=== PATIENT | female | born 1935 | race Caucasian/White ===

== ENCOUNTER 2021-07-29 09:36 | Inpatient (IN) ==
[2021-07-29] MEDS ORDERED: BISACODYL 10 MG SUPP.RECT PR ONE (10:55)
[2021-07-29] MEDS ORDERED: morphine 2 MG/ML VIAL IV PRN (10:55)
[2021-07-29] MEDS ORDERED: METOPROLOL SUCCINATE 50 MG TAB.XL.24H PO ONE (10:56)
[2021-07-29] MEDS ORDERED: ACETAMINOPHEN 1,000 MG/100 ML BAG IV ONE (10:56)
--- NOTE | 2021-07-29 11:32 | Emergency Department Note ---
Back Pain HPI General Chief Complaint: Back Pain/Injury Stated Complaint: a-fib rvr, back pain, compression fx, arthritis Time Seen by Provider: 07/29/21 10:26 Source: patient and EMS Limitations: no limitations History of Present Illness HPI Narrative: 86-year-old female with diagnosed severe T2 compression fracture on 07/27/2021 presents for ambulatory dysfunction and self-care deficits secondary to her compression fracture. Family brought her in and is unable to care for her at home. She has been taking hydrocodone without significant relief. She has not had a bowel movement for 5 days and is endorsing abdominal distention and d iscomfort. She is taking a stool softener. Significant past medical history for atrial fibrillation, not on anticoagulation secondary to intracranial bleed. She also has a history of hypertension, GERD, permanent pacemaker, and osteoarthritis. She was unable to take her metoprolol this morning secondary to difficulty swallowing. She also reports poor oral intake and appetite. Related Data Home Medications Medication Instructions Recorded Confirmed omeprazole 20 mg capsule,delayed 20 mg PO DAILY 12/24/15 07/29/21 release metoprolol succinate 50 mg 50 mg PO BID 12/29/20 07/29/21 tablet,extended release 24 hr acetaminophen 500 mg tablet 500 mg PO Q6H PRN 07/27/21 07/29/21 (Tylenol Extra Strength) amlodipine 5 mg tablet 5 mg PO QDAY 07/27/21 07/29/21 furosemide 20 mg tablet 10 mg PO DAILY 07/27/21 07/29/21 Allergies Allergy/AdvReac Type Severity Reaction Status Date / Time codeine [CODEINE] Allergy Intermediate Syncope Verified 07/29/21 09:56 methotrexate Allergy Unknown Unknown Verified 07/29/21 09:56 Qvxkxqr-IUP-KuM Reductase Allergy Unknown Unknown Verified 07/29/21 09:56 Inhibitor [Bvnvaxf-Fkm-Vdo Reductase Inhibitor] tramadol Allergy Unknown Unknown Verified 07/29/21 09:56 folic acid AdvReac Intermediate Verified 07/29/21 09:56 losartan AdvReac Intermediate bad dreams Verified 07/29/21 09:56 celebrex Allergy Unknown Unknown Uncoded 11/17/18 08:45 Review of Systems ROS ROS Narrative: Narrative: All systems ED: reviewed and negative except as stated. [facility] Narrative Patient History Narrative: Narrative: Medical/Surgical/Family History All Active Problems (Updated 07/29/21 @ 14:18 by Ifeoma Chaudhary PA-C) Atrial fibrillation (Acute) Intracranial hemorrhage (Acute) Bleeding in mouth (Acute) Arthritis of both hips (Acute) Closed compression fracture of L2 vertebra (Acute) Closed compression fracture of lumbar vertebra (Acute) Self-care deficit (Acute) Uncontrolled pain (Acute) Rash and nonspecific skin eruption (Acute) Osteoarthritis (Acute) Polyarthralgia (Acute) Encounter for long-term (current) use of high-risk medication (Acute) 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) Melanoma of right upper arm (Chronic) Basal cell carcinoma (Chronic) Fibromyalgia (Chronic) Osteoporosis (Chronic) Eczema (Chronic) Personal history of malignant melanoma of skin (Chronic) Renal cyst (Chronic) Pelvic varices (Chronic) Vulvitis (Chronic) Bilateral hip pain (Chronic) Osteoarthritis cervical spine (Chronic) Paresthesia of upper limb (Chronic) High risk medication use (Chronic) Elevated C-reactive protein (Chronic) GERD (gastroesophageal reflux disease) (Chronic) Aneurysm of ascending aorta (Chronic) Atrial flutter (Chronic) Hypercholesteremia (Chronic) Hypertension (Chronic) 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) Muscle spasm of back (Chronic) Medical History (Updated 07/29/21 @ 14:18 by Ifeoma Chaudhary PA-C) Aneurysm of ascending aorta Atrial flutter Basal cell carcinoma Bilateral hip pain Disorder of vagina Eczema Elevated C-reactive protein Encounter for long-term (current) use of high-risk medication Fibromyalgia GERD (gastroesophageal reflux disease) High risk medication use Hypercholesteremia Hypertension Idiopathic osteoarthritis Melanoma of right upper arm Muscle spasm of back Osteoarthritis Osteoarthritis cervical spine Osteoporosis Paresthesia of upper limb Pelvic varices Personal history of malignant melanoma of skin Polyarthralgia Pain is managed with acetaminophen. Has tried multiple medications which has improved joint pain and rash initially but after 4-6 months, effectiveness stops. Currently taking only acetaminophen. Discussed adding topical diclofenac and she is willing. Psoriasis with arthropathy Rash on feet is reported worse. She is using a topical moisturizing cream. Unable to afford Otezla and she did not start this. Discussed [facility] and potential for the patient assistance program. May consider after evaluation of labs by primary provider. Psoriasis with pustules Rash and nonspecific skin eruption Renal cyst Vulvitis Surgical History History of hysterectomy History of suburethral sling procedure Hx of cataract surgery Bilateral Family History Other No pertinent family history Social History Smoking Status: Former smoker Alcohol Intake Frequency: 0-2 drinks per day Exam Narrative Narrative: General: AOx3, NAD, nontoxic appearing. Pleasant and conversant. HEENT: PERRL, EOMI, normocephalic. Moist mucous membranes. Normal facies. Chest: Symmetric Respiratory: Lungs clear to auscultation bilaterally. No respiratory distress. Unlabored breathing. Heart: A. fib, no murmurs/clicks/rubs. Abdomen: Non-tender, Non distended, hypoactive bowel tones. No organomegaly. Extremities: Warm and well perfused. No edema. DP 2+ bilaterally. No venous stasis. Neuro: No focal deficits. Cranial nerves II-XII grossly normal. Moves all 4 spontaneously. She is sensate throughout the bilateral lower extremities. Skin: Warm dry, no rashes or lesions, no cyanosis. Psych: Normal mood and affect Heme/Lymph: No abnormal bruising General Limitations: no limitations Course Course Course Narrative: 86-year-old female with severe L2 compression fracture and self-care deficits presents for inability to care for herself at home Reevaluation(s) Reevaluation #1: Obtain IV access and give IV morphine and Tylenol as well as IV fluids Bisacodyl suppository Basic labs and COVID swab for admission She will need admission for placement for skilled rehab and for improved pain management Vital Signs Vital signs: Vital Signs Temperature 98.4 F 07/29/21 09:51 Pulse Rate 135 H 07/29/21 09:51 Respiratory Rate 13 07/29/21 09:51 Blood Pressure 132/102 07/29/21 09:51 Pulse Oximetry (%) 91 07/29/21 09:51 Temperature 98.4 F 07/29/21 09:51 Pulse Rate 106 H 07/29/21 15:31 Respiratory Rate 18 07/29/21 15:45 Blood Pressure 135/106 07/29/21 15:45 Pulse Oximetry (%) 97 07/29/21 15:31 MDM MDM Narrative Medical decision making narrative: Severe L2 compression fracture Self-care deficits Uncontrolled pain Patient will need admission for pain control and placement to a [facility] facility. She is amenable to this plan. In the meantime I am giving her morphine and Tylenol for better pain management. I have discussed the case with Dr. Richard, hospitalist on service, and he has accepted the patient for admission. Lab Data Result diagrams: 07/29/21 11:53 Labs: Lab Results 07/29/21 07/29/21 Range/Units 11:53 11:53 WBC 8.2 (4.5-11.0) K/mcL RBC 4.68 (3.59-5.38) M/mcL Hgb 14.8 (11.2-15.7) g/dL Hct 42.4 (34.1-44.9) % POC Hct 45 (36-48) % MCV 90.6 (80.0-100.0) fL MCH 31.6 (26.0-34.0) pg MCHC 34.9 (31.0-36.0) g/dL RDW 13.5 (11.5-14.5) % Plt Count 108 L (140-440) K/mcL MPV 12.2 H (7.4-10.4) fL Neut % (Auto) 71.0 (38.0-78.0) % Lymph % (Auto) 13.5 L (15.5-49.0) % [place] % (Auto) 15.3 H (1.0-12.0) % Eos % (Auto) 0.1 (0.0-7.0) % Baso % (Auto) 0.1 (0.0-2.0) % Lymph # (Auto) 1.11 L (1.50-4.80) K/mcL [place] # (Auto) 1.26 H (0.10-0.90) K/mcL Eos # (Auto) 0.01 (0.00-0.70) K/mcL Baso # (Auto) 0.01 (0.00-0.30) K/mcL Absolute Neutrophils 5.83 (1.80-8.00) K/mcL POC Sodium 132 L (133-145) mEq/L POC Potassium 4.0 (3.3-5.1) mEql/L POC Chloride 96 (96-108) mEq/L POC Total CO2 27 (22-30) mmol/L POC BUN 27 H (6-20) mg/dL POC Creatinine 0.8 (0.6-1.2) mg/dL POC Glucose 125 H (70-105) mg/dL POC WB Ioniz Calcium 1.20 (1.16-1.32) mmEq/L ED POC Tests ED POC Tests: AMADO - SARS Antigen Negative Discharge Plan Patient/Caregiver Discharge Instructions Pt seen by [employer]/PA only: Yes Clinical Impression: Closed compression fracture of lumbar vertebra, Self-care deficit, Uncontrolled pain Patient Disposition: Xfer As Inpt ([facility]) Condition: Fair Discharge Date/Time: 07/29/21 16:10
[2021-07-29 12:04] LABS: POC Blood Urea Nitrogen 27 mg/dL (6-20); POC CO2 27 mmol/L (22-30); POC Chloride 96 mEq/L (96-108); POC Creatinine 0.8 mg/dL (0.6-1.2); POC Glucose, Random 125 mg/dL (70-105); POC Hematocrit 45 % (36-48); POC Sodium 132 mEq/L (133-145)
--- NOTE | 2021-07-29 13:07 | Internal Med History&Physical ---
HPI History of Present Illness Patient information: Note initiated : 07/29/21 at 1:01 pm Service Date, if different from initiated Date: [] Patient: Sherice Danielson 86 y/o F admitted on for a-fib rvr, back pain, compression fx, arthritis. Chief Complaint: [] History of present illness: Sherice Danielson is a 86 year old female with a history of hypertension, atrial fibrillation not on anticoagulation due to prior ICH, GERD, s/p permanent pac emaker, removed melanoma without recurrence, psoriasis, and osteoporosis admitted for intractable worse over the iliac crest and bilateral lower hips. The patient was seen in the ED on 07/27/21 for the same pain, workup included pelvis and hip xray as well as a lumbar spine xray that was remarkable for thoracic and lumbar compression fractures at T11 and L2, respectively, and mild osteoarthritis in both hips with no acute abnormality. The patient was discharged home with a prescription for hydrocodone that she filled and took as directed however presented again for persistent pain and inability to manage her ADLs due to pain. On exam, the pain appears to be over the bilateral iliac crest and in both hips. The pain is reproducible with palpation. She says this pain has occurred before and tends to occur more in the winter during cold weather. The pain is especially worse in the morning and associated with morning stiffness. Review of systems Constitutional: no fever, fatigue, or weight loss Eyes: no vision changes or pain Cardiovascular: no chest pain, no palpitations Respiratory: no cough or dyspnea Gastrointestinal: positive for constipation no abdominal pain, no nausea, vomiting, or diarrhea Genitourinary: no dysuria or difficulty voiding Musculoskeletal: positive for bilateral hip arthralgia Integumentary: skin lesions secondary to psoriasis Neurological: no focal weakness or numbness Psychiatric: no anxiety or depression Physical exam Head: Atraumatic, normal inspection. Eyes: normal appearance, no scleral icterus. Neck: full ROM Respiratory: no respiratory distress. Cardiovascular: normal rate and rhythm, S1, S2. GI/Abdominal: soft, nontender, no guarding. Extremities: tenderness over bilateral illiac crest and bilateral greater trochanter of femur. Neurological: CN II-XII intact, intact motor, intact sensation. Psychiatric: normal mood. 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) Melanoma of right upper arm (Chronic) Basal cell carcinoma (Chronic) Fibromyalgia (Chronic) Osteoporosis (Chronic) Eczema (Chronic) Personal history of malignant melanoma of skin (Chronic) Renal cyst (Chronic) Pelvic varices (Chronic) Vulvitis (Chronic) Bilateral hip pain (Chronic) Osteoarthritis cervical spine (Chronic) Paresthesia of upper limb (Chronic) High risk medication use (Chronic) Elevated C-reactive protein (Chronic) GERD (gastroesophageal reflux disease) (Chronic) Aneurysm of ascending aorta (Chronic) Atrial flutter (Chronic) Hypercholesteremia (Chronic) Hypertension (Chronic) 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) Muscle spasm of back (Chronic) Medical History (Updated 07/29/21 @ 14:18 by Ifeoma Chaudhary PA-C) Aneurysm of ascending aorta Atrial flutter Basal cell carcinoma Bilateral hip pain Disorder of vagina Eczema Elevated C-reactive protein Encounter for long-term (current) use of high-risk medication Fibromyalgia GERD (gastroesophageal reflux disease) High risk medication use Hypercholesteremia Hypertension Idiopathic osteoarthritis Melanoma of right upper arm Muscle spasm of back Osteoarthritis Osteoarthritis cervical spine Osteoporosis Paresthesia of upper limb Pelvic varices Personal history of malignant melanoma of skin Polyarthralgia Pain is managed with acetaminophen. Has tried multiple medications which has improved joint pain and rash initially but after 4-6 months, effectiveness stops. Currently taking only acetaminophen. Discussed adding topical diclofenac and she is willing. Psoriasis with arthropathy Rash on feet is reported worse. She is using a topical moisturizing cream. Unable to afford Otezla and she did not start this. Discussed [facility] and potential for the patient assistance program. May consider after evaluation of labs by primary provider. Psoriasis with pustules Rash and nonspecific skin eruption Renal cyst Vulvitis Surgical History History of hysterectomy History of suburethral sling procedure Hx of cataract surgery Bilateral Family History Other No pertinent family history Social History (Updated 11/17/18 @ 09:47 by CLARISSA Bueno) marital status: occupational status: retired alcohol intake frequency: 0-2 drinks per day MEDS/ALLERGIES Home Medications and Allergies Home Medications Medication Instructions Recorded Confirmed Type omeprazole 20 mg capsule,delayed 20 mg PO DAILY 12/24/15 07/29/21 History release metoprolol succinate 50 mg 50 mg PO BID 12/29/20 07/29/21 History tablet,extended release 24 hr acetaminophen 500 mg tablet 500 mg PO Q6H PRN 07/27/21 07/29/21 History (Tylenol Extra Strength) amlodipine 5 mg tablet 5 mg PO QDAY 07/27/21 07/29/21 History furosemide 20 mg tablet 10 mg PO DAILY 07/27/21 07/29/21 History Allergies Allergy/AdvReac Type Severity Reaction Status Date / Time codeine [CODEINE] Allergy Intermediate Syncope Verified 07/29/21 09:56 methotrexate Allergy Unknown Unknown Verified 07/29/21 09:56 Vfyqosf-HCG-HyT Reductase Allergy Unknown Unknown Verified 07/29/21 09:56 Inhibitor [Fttcqex-Fsu-Wzw Reductase Inhibitor] tramadol Allergy Unknown Unknown Verified 07/29/21 09:56 folic acid AdvReac Intermediate Verified 07/29/21 09:56 losartan AdvReac Intermediate bad dreams Verified 07/29/21 09:56 celebrex Allergy Unknown Unknown Uncoded 11/17/18 08:45 EXAM Constitutional Vitals: Temp Pulse Resp BP Pulse Ox 98.4 F 109 H 17 127/97 96 07/29/21 09:51 07/29/21 12:54 07/29/21 12:54 07/29/21 12:45 07/29/21 12:54 DATA Data Completed and Pending Labs: Labs from last 24 hours 07/29/21 07/29/21 11:53 11:53 WBC Pending RBC Pending Hgb Pending Hct Pending POC Hct 45 MCV Pending MCH Pending MCHC Pending RDW Pending Plt Count Pending MPV Pending Neut % (Auto) Pending POC Sodium 132 L POC Potassium 4.0 POC Chloride 96 POC Total CO2 27 POC BUN 27 H POC Creatinine 0.8 POC Glucose 125 H POC WB Ioniz Calcium 1.20 A/P Narrative A/P Narrative: Assessment: 86 year old female with a history of hypertension, atrial fibrillation not on anticoagulation due to prior ICH, GERD, s/p permanent pacemaker, removed melanoma without recurrence, psoriasis, and osteoporosis admitted for intractable worse over the iliac crest and bilateral lower hips. The patient was seen in the ED on 07/27/21 for the same pain, workup included pelvis and hip xray as well as a lumbar spine xray that was remarkable for thoracic and lumbar compression fractures at T11 and L2, respectively, and mild osteoarthritis in both hips with no acute abnormality. The patient was discharged home with a prescription for hydrocodone that she filled and took as directed however presented again for persistent pain and inability to manage her ADLs due to pain. On exam, the pain appears to be over the bilateral iliac crest and in both hips. The pain is reproducible with palpation. She says this pain has occurred before and tends to occur more in the winter during cold weather. The pain is especially worse in the morning and associated with morning stiffness. There could be a component of inflammatory pain, the patient has a known history of psoriasis which is known to be associated with inflammatory pain in the form of arthritis, enthesitis, and tendosynovitis. #Intractable pain in lower back, bilateral iliac crest, and bilateral hips -uncertain caue however inflammatory features are present -history of psoriasis #T11 and L2 vertebral compression fractures of unknown chronicity #Thrombocytopenia #Essential hypertension #Atrial fibrillation not on anticoagulation due to prior ICH #Osteoporosis #GERD #History of psoriasis #Ascending aorta aneurysm #Permanent pacemaker #History of intracranial hemorrhage #History of melanoma Plan -Scheduled tylenol PO and toradol IV, warm packs. -Avoid opioids if possible. -Bowel regimen. -Check INR and CRP. -Home medication reconciliation, resume essential medications. -PT and OT -Code status: DNR/DNI -Disposition: Probably TCU for rehab. Time Spent With Patient Time: Total time spent is greater than 50% in coordination of care (as documented) at patient's floor/unit and/or counseling patient:
[2021-07-29 13:17] LABS: Basophils # (Auto) 0.01 K/mcL (0.00-0.30); Basophils % (Auto) 0.1 % (0.0-2.0); Eosinophils # (Auto) 0.01 K/mcL (0.00-0.70); Eosinophils % (Auto) 0.1 % (0.0-7.0); Hematocrit 42.4 % (34.1-44.9); Hemoglobin 14.8 g/dL (11.2-15.7); Lymphocytes # (Auto) 1.11 K/mcL (1.50-4.80); Lymphocytes % (Auto) 13.5 % (15.5-49.0); Mean Cell Volume 90.6 fL (80.0-100.0); Mean Corpuscular HGB Conc 34.9 g/dL (31.0-36.0); Mean Platelet Volume 12.2 fL (7.4-10.4); Monocytes # (Auto) 1.26 K/mcL (0.10-0.90); Monocytes % (Auto) 15.3 % (1.0-12.0); Platelet Count 108 K/mcL (140-440); RBC 4.68 M/mcL (3.59-5.38); Red Cell Distribution Width 13.5 % (11.5-14.5); WBC 8.2 K/mcL (4.5-11.0)
[2021-07-29] MEDS ORDERED: ACETAMINOPHEN 325 MG TABLET PO SCH (16:15)
[2021-07-29] MEDS ORDERED: ONDANSETRON 4 MG/2 ML VIAL IV PRN (16:15)
[2021-07-29] MEDS: 0.9 % SODIUM CHLORIDE 10 ML SYRINGE IV SCH ×2 (17:16→21:30)
[2021-07-29] MEDS ORDERED: ACETAMINOPHEN 500 MG TABLET PO ONE ×2 (17:19→23:42)
[2021-07-29] MEDS: KETOROLAC 30 MG/ML VIAL IV SCH ×2 (18:55→23:41)
--- NOTE | 2021-07-29 21:13 | EKG ---
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
[2021-07-29] MEDS: METOPROLOL SUCCINATE 50 MG TAB.XL.24H PO SCH (21:30)
[2021-07-29] MEDS: SENNOSIDES 1 TABLET PO SCH (21:30)
[2021-07-29] MEDS: DOCUSATE SODIUM 100 MG CAPSULE PO SCH (21:30)
[2021-07-29] MEDS: ACETAMINOPHEN 500 MG TABLET PO SCH (23:40)
[2021-07-30] MEDS: 0.9 % SODIUM CHLORIDE 10 ML SYRINGE IV SCH ×3 (05:32→21:17)
[2021-07-30] MEDS: KETOROLAC 30 MG/ML VIAL IV SCH (05:32)
[2021-07-30 07:45] LABS: Basophils # (Auto) 0.02 K/mcL (0.00-0.30); Basophils % (Auto) 0.3 % (0.0-2.0); Eosinophils # (Auto) 0.05 K/mcL (0.00-0.70); Eosinophils % (Auto) 0.7 % (0.0-7.0); Hematocrit 44.4 % (34.1-44.9); Lymphocytes % (Auto) 22.4 % (15.5-49.0); Mean Cell Volume 91.5 fL (80.0-100.0); Mean Corpuscular HGB Conc 33.8 g/dL (31.0-36.0); Mean Platelet Volume 11.8 fL (7.4-10.4); Monocytes # (Auto) 1.39 K/mcL (0.10-0.90); Monocytes % (Auto) 18.3 % (1.0-12.0); Neutrophils % (Auto) 58.3 % (38.0-78.0); Platelet Count 114 K/mcL (140-440); RBC 4.85 M/mcL (3.59-5.38); Red Cell Distribution Width 13.5 % (11.5-14.5); WBC 7.6 K/mcL (4.5-11.0)
[2021-07-30 08:30] LABS: ALT/SGPT 19 U/L (<40); AST/SGOT 30 U/L (<32); Albumin 3.7 gm/dL (3.2-5.2); Albumin/Globulin Ratio 1.4 (1.0-2.3); Alkaline Phosphatase 86 U/L (39-117); Bilirubin,Total 2.3 mg/dL (0.1-1.0); Blood Urea Nitrogen 25 mg/dL (8-23); Calcium 9.2 mg/dL (8.6-10.4); Carbon Dioxide 26 mmol/L (22-30); Chloride 94 mmol/L (96-108); Globulin 2.7 gm/dL (2.2-3.7); Glomerular Filtration Rate 59; Glucose 84 mg/dL (70-105)
[2021-07-30] MEDS: OMEPRAZOLE 20 MG CAPSULE PO SCH (08:42)
[2021-07-30] MEDS: FUROSEMIDE 20 MG TABLET PO SCH (08:42)
[2021-07-30] MEDS: amLODIPine 5 MG TABLET PO SCH (08:43)
[2021-07-30] MEDS: METOPROLOL SUCCINATE 50 MG TAB.XL.24H PO SCH ×2 (08:43→21:16)
[2021-07-30] MEDS: ACETAMINOPHEN 500 MG TABLET PO SCH ×3 (08:43→21:16)
[2021-07-30] MEDS: DOCUSATE SODIUM 100 MG CAPSULE PO SCH ×2 (08:49→21:17)
[2021-07-30] MEDS: INDOMETHACIN 25 MG CAPSULE PO SCH ×4 (08:49→21:17)
[2021-07-30] MEDS: SENNOSIDES 1 TABLET PO SCH ×2 (08:50→21:17)
[2021-07-30] MEDS: POLYETHYLENE GLYCOL 3350 17 GM PACKET PO SCH (08:50)
[2021-07-30] MEDS ORDERED: OMEPRAZOLE 20 MG CAPSULE PO SCH (09:00)
--- NOTE | 2021-07-30 11:23 | Internal Med Progress Note ---
SUBJECTIVE Subjective Patient information: Note initiated : 07/30/21 at 11:13 am Service Date, if different from initiated Date: [] Patient: Sherice Danielson 86 y/o F admitted on 07/29/21 for a-fib rvr, back pain, compression fx, arthritis. Chief Complaint: [] Interval history: Sherice Danielson is a 86 year old female with a history of hypertension, atrial fibrillation not on anticoagulation due to prior ICH, GERD, s/p permanent pacemaker, removed melanoma without recurrence, psoriasis, and osteoporosis admitted for intractable worse over the iliac crest and bilateral lower hips. The patient was seen in the ED on 07/27/21 for the same pain, workup included pelvis and hip xray as well as a lumbar spine xray that was remarkable for thoracic and lumbar compression fractures at T11 and L2, respectively, and mild osteoarthritis in both hips with no acute abnormality. The patient was discharged home with a prescription for hydrocodone that she filled and took as directed however presented again for persistent pain and inability to manage her ADLs due to pain. On exam, the pain appears to be over the bilateral iliac crest and in both hips. The pain is reproducible with palpation. She says this pain has occurred before and tends to occur more in the winter during cold weather. The pain is especially worse in the morning and associated with morning stiffness. 07/30 Pain has improved, transitioned from Toradol to Indomethacin TID. Awaiting PT evaluation. Review of systems:Improved back pain, denies chills, fevers, chest pain, dysp lucinda. Physical exam Head: Atraumatic, normal inspection. Eyes: normal appearance, no scleral icterus. Neck: full ROM Respiratory: no respiratory distress. Cardiovascular: normal rate and rhythm, S1, S2. GI/Abdominal: soft, nontender, no guarding. Extremities: tenderness to palpation over bilateral sacroiliac joints Neurological: CN II-XII intact, intact motor, intact sensation. Psychiatric: normal mood. Skin: warm, normal color Constitutional Vitals: Vital Signs Temp Pulse Resp BP Pulse Ox 96.8 F L 82 20 126/87 92 07/30/21 07:11 07/30/21 07:11 07/30/21 07:11 07/30/21 07:11 07/30/21 07:11 Period Temp Pulse Resp BP Sys/Booth Pulse Ox Last 24 Hr 96.8 F-98.7 F 64-116 15-26 99-150/65-106 89-98 Intake and Output 07/29/21 07/30/21 07/30/21 21:59 05:59 13:59 Output Total 200 Balance -200 Weight 48.398 kg Intake & Output: Intake & Output 07/29/21 07/30/21 07/30/21 21:59 05:59 13:59 Output Total 200 Balance -200 Weight 48.398 kg Output: Void Amount 200 Other: Urine Appearance Clear Urine Color Bright Yellow Stool Size Small Stool Color Brown Stool Consistency Soft # Voids 1 1 # Bowel Movements 1 OBJ DATA Labs CBC & Chem 7: 07/30/21 05:00 07/30/21 05:00 Labs: Abnormal Lab Results 07/30/21 07/30/21 07/30/21 05:00 05:00 05:00 Plt Count 114 L MPV 11.8 H Lymph % (Auto) [place] % (Auto) 18.3 H Lymph # (Auto) [place] # (Auto) 1.39 H POC Sodium Chloride 94 L POC BUN BUN 25 H POC Glucose Total Bilirubin 2.3 H C-Reactive Protein 14.20 H 07/29/21 07/29/21 11:53 11:53 Plt Count 108 L MPV 12.2 H Lymph % (Auto) 13.5 L [place] % (Auto) 15.3 H Lymph # (Auto) 1.11 L [place] # (Auto) 1.26 H POC Sodium 132 L Chloride POC BUN 27 H BUN POC Glucose 125 H Total Bilirubin C-Reactive Protein Meds: Medications Acetaminophen (Acetaminophen 500 Mg Tablet) 1,000 mg PO Q8H [facility]; Protocol Last Admin: 07/30/21 08:43 Dose: 1,000 mg Documented by: Amlodipine Besylate (Amlodipine 5 Mg Tablet) 5 mg PO QDAY [facility] Last Admin: 07/30/21 08:43 Dose: 5 mg Documented by: Docusate Sodium (Docusate Sodium 100 Mg Capsule) 100 mg PO BID [facility] Last Admin: 07/30/21 08:49 Dose: Not Given Documented by: Furosemide (Furosemide 20 Mg Tablet) 10 mg PO DAILY [facility] Last Admin: 07/30/21 08:42 Dose: 10 mg Documented by: Indomethacin (Indomethacin 25 Mg Capsule) 25 mg PO TID [facility] Last Admin: 07/30/21 09:51 Dose: 25 mg Documented by: Metoprolol Succinate (Metoprolol Succinate 50 Mg Tab.Xl.24h) 50 mg PO BID [facility] Last Admin: 07/30/21 08:43 Dose: 50 mg Documented by: Omeprazole (Omeprazole 20 Mg Capsule) 40 mg PO DAILY [facility] Last Admin: 07/30/21 08:42 Dose: 40 mg Documented by: Ondansetron HCl (Ondansetron 4 Mg/2 Ml Vial) 4 mg IV Q6HP PRN PRN Reason: Nausea And Vomiting Polyethylene Glycol (Polyethylene Glycol 3350 17 Gm Packet) 17 gm PO DAILY [facility] Last Admin: 07/30/21 08:50 Dose: Not Given Documented by: Senna (Sennosides 1 Tablet) 2 tab PO BID [facility] Last Admin: 07/30/21 08:50 Dose: Not Given Documented by: Sodium Chloride (0.9 % Sodium Chloride 10 Ml Syringe) 10 ml IV Q8 [facility] Last Admin: 07/30/21 05:32 Dose: 10 ml Documented by: A/P Narrative A/P Narrative: Assessment: 86 year old female with a history of hypertension, atrial fibrillation not on anticoagulation due to prior ICH, GERD, s/p permanent pacemaker, removed melanoma without recurrence, psoriasis, and osteoporosis admitted for intractable worse over the iliac crest and bilateral lower hips. The patient was seen in the ED on 07/27/21 for the same pain, workup included pelvis and hip xray as well as a lumbar spine xray that was remarkable for thoracic and lumbar compression fractures at T11 and L2, respectively, and mild osteoarthritis in both hips with no acute abnormality. The patient was discharged home with a prescription for hydrocodone that she filled and took as directed however presented again for persistent pain and inability to manage her ADLs due to pain. On exam, the pain appears to be over the bilateral iliac crest and in both hips. The pain is reproducible with palpation. She says this pain has occurred before and tends to occur more in the winter during cold weather. The pain is especially worse in the morning and associated with morning stiffness. There could be a component of inflammatory pain, the patient has a known history of psoriasis which is known to be associated with inflammatory pain in the form of arthritis, enthesitis, and tendosynovitis. #Intractable pain in lower back, sacroiliac joints , and bilateral hips -seems to be worse at the sacroiliac joints -suspect inflammatory pain -history of psoriasis noted #T11 and L2 vertebral compression fractures of unknown chronicity #Thrombocytopenia #Essential hypertension #Atrial fibrillation not on anticoagulation due to prior ICH #Osteoporosis #GERD #History of psoriasis #Ascending aorta aneurysm #Permanent pacemaker #History of intracranial hemorrhage #History of melanoma Plan -Scheduled tylenol PO and indomethacin TID, warm packs. -Avoid opioids if possible. -Bowel regimen. -Prilosec 40 mg daily for GI prophylaxis. -PT and OT -Code status: DNR/DNI -Disposition: Probably TCU for rehab. Referral for rheumatology when discharged. Time Spent With Patient Time: Total time spent is greater than 50% in coordination of care (as documented) at patient's floor/unit and/or counseling patient: QUALITY VTE Deep Vein Thrombosis/Pulmonary Embolism Present on Admission: No
[2021-07-31] MEDS: 0.9 % SODIUM CHLORIDE 10 ML SYRINGE IV SCH ×3 (04:46→20:35)
[2021-07-31] MEDS: ACETAMINOPHEN 500 MG TABLET PO SCH ×3 (05:55→20:34)
[2021-07-31] MEDS: FUROSEMIDE 20 MG TABLET PO SCH (07:51)
[2021-07-31] MEDS: METOPROLOL SUCCINATE 50 MG TAB.XL.24H PO SCH ×2 (07:51→20:35)
[2021-07-31] MEDS: OMEPRAZOLE 20 MG CAPSULE PO SCH (07:52)
[2021-07-31] MEDS: INDOMETHACIN 25 MG CAPSULE PO SCH (07:53)
[2021-07-31] MEDS: DOCUSATE SODIUM 100 MG CAPSULE PO SCH ×2 (07:53→20:33)
[2021-07-31] MEDS: POLYETHYLENE GLYCOL 3350 17 GM PACKET PO SCH (07:53)
[2021-07-31] MEDS: amLODIPine 5 MG TABLET PO SCH (07:53)
[2021-07-31] MEDS: SENNOSIDES 1 TABLET PO SCH ×2 (07:54→20:33)
--- NOTE | 2021-07-31 11:58 | Cat Scan Report ---
CLINICAL INFORMATION: Acute diplopia. History of intraventricular hemorrhage. COMPARISON: Head CT 12/25/2019. TECHNIQUE: 2.5 mm helical slices were obtained in the skull base to vertex. Following reconstruction, axial reformatted images were reviewed at bone and parenchymal windows. The exam was performed using radiation dose optimization techniques including, but not limited to, automated exposure control, adjustment of the mA and/or kV according to patient size and use of iterative reconstruction technique. FINDINGS: The ventricles, sulci, fissures, and cisterns are symmetrically enlarged compatible with moderate age-related atrophy-no change.. No extra-axial fluid collections are identified. The cerebrum, brainstem and cerebellum are unremarkable. There is no evidence of hemorrhage, mass effect, or edema. Bone windows show no osseous abnormality. IMPRESSION: Moderate atrophy and chronic ischemic changes in the cerebral white matter-expected for age. No evidence of intracerebral hemorrhage. No cause identified for acute diplopia.. Interpreted and Authenticated by: Ivan Murray 07/31/21
--- NOTE | 2021-07-31 12:10 | Internal Med Progress Note ---
SUBJECTIVE Subjective Patient information: Note initiated : 07/31/21 at 12:08 pm Service Date, if different from initiated Date: [] Patient: Sherice Danielson 86 y/o F admitted on 07/29/21 for a-fib rvr, back pain, compression fx, arthritis. Chief Complaint: [] Interval history: Sherice Danielson is a 86 year old female with a history of hypertension, atrial fibrillation not on anticoagulation due to prior ICH, GERD, s/p permanent pacemaker, removed melanoma without recurrence, psoriasis, and osteoporosis admitted for intractable worse over the iliac crest and bilateral lower hips. The patient was seen in the ED on 07/27/21 for the same pain, workup included pelvis and hip xray as well as a lumbar spine xray that was remarkable for thoracic and lumbar compression fractures at T11 and L2, respectively, and mild osteoarthritis in both hips with no acute abnormality. The patient was discharged home with a prescription for hydrocodone that she filled and took as directed however presented again for persistent pain and inability to manage her ADLs due to pain. On exam, the pain appears to be over the bilateral iliac crest and in both hips. The pain is reproducible with palpation. She says this pain has occurred before and tends to occur more in the winter during cold weather. The pain is especially worse in the morning and associated with morning stiffness. 07/30 Pain has improved, transitioned from Toradol to Indomethacin TID. Awaiting PT evaluation. 07/31 The patient complained of diplopia and vision changes after receiving In domethacin. Discontinued Indomethacin, CT head ordered. Review of systems: Positive for diplopia, persistent back pain, denies chills, fevers, chest pain, dyspnea. Physical exam Head: Atraumatic, normal inspection. Eyes: normal appearance, no scleral icterus. Neck: full ROM Respiratory: no respiratory distress. Cardiovascular: normal rate and rhythm, S1, S2. GI/Abdominal: soft, nontender, no guarding. Extremities: tenderness to palpation over bilateral sacroiliac joints Neurological: CN II-XII intact, intact motor, intact sensation. Psychiatric: normal mood. Skin: warm, normal color Constitutional Vitals: Vital Signs Temp Pulse Resp BP Pulse Ox 97.6 F 97 H 22 149/90 90 07/31/21 07:53 07/31/21 07:53 07/31/21 07:53 07/31/21 07:53 07/31/21 07:53 Period Temp Pulse Resp BP Sys/Booth Pulse Ox Last 24 Hr 97.5 F-98.4 F 79-106 16-24 115-149/75-99 90-96 Intake and Output 07/30/21 07/31/21 07/31/21 21:59 05:59 13:59 Intake Total 840 350 Output Total 300 400 Balance 540 -50 Weight 48.035 kg Intake & Output: Intake & Output 07/30/21 07/31/21 07/31/21 21:59 05:59 13:59 Intake Total 840 350 Output Total 300 400 Balance 540 -50 Weight 48.035 kg Intake: Oral 840 350 Output: Void Amount 300 400 Other: Meal yogurt Percent of Meal Consumed 100% Feeding Ability Independent Urine Appearance Clear Clear Urine Color Bright Yellow Bright Yellow Stool Size Moderate Small Stool Color Brown Brown Stool Consistency Soft Soft Formed # Voids 1 # Bowel Movements 1 OBJ DATA Labs CBC & Chem 7: 07/30/21 05:00 07/30/21 05:00 Labs: Abnormal Lab Results 07/30/21 07/30/21 07/30/21 05:00 05:00 05:00 Plt Count 114 L MPV 11.8 H Lymph % (Auto) [place] % (Auto) 18.3 H Lymph # (Auto) [place] # (Auto) 1.39 H POC Sodium Chloride 94 L POC BUN BUN 25 H POC Glucose Total Bilirubin 2.3 H C-Reactive Protein 14.20 H 07/29/21 07/29/21 11:53 11:53 Plt Count 108 L MPV 12.2 H Lymph % (Auto) 13.5 L [place] % (Auto) 15.3 H Lymph # (Auto) 1.11 L [place] # (Auto) 1.26 H POC Sodium 132 L Chloride POC BUN 27 H BUN POC Glucose 125 H Total Bilirubin C-Reactive Protein Meds: Medications Acetaminophen (Acetaminophen 500 Mg Tablet) 1,000 mg PO Q8H [facility]; Protocol Last Admin: 07/31/21 05:55 Dose: 1,000 mg Documented by: Amlodipine Besylate (Amlodipine 5 Mg Tablet) 5 mg PO QDAY [facility] Last Admin: 07/31/21 07:53 Dose: 5 mg Documented by: Docusate Sodium (Docusate Sodium 100 Mg Capsule) 100 mg PO BID [facility] Last Admin: 07/31/21 07:53 Dose: Not Given Documented by: Furosemide (Furosemide 20 Mg Tablet) 10 mg PO DAILY [facility] Last Admin: 07/31/21 07:51 Dose: 10 mg Documented by: Metoprolol Succinate (Metoprolol Succinate 50 Mg Tab.Xl.24h) 50 mg PO BID [facility] Last Admin: 07/31/21 07:51 Dose: 50 mg Documented by: Omeprazole (Omeprazole 20 Mg Capsule) 40 mg PO DAILY [facility] Last Admin: 07/31/21 07:52 Dose: 40 mg Documented by: Ondansetron HCl (Ondansetron 4 Mg/2 Ml Vial) 4 mg IV Q6HP PRN PRN Reason: Nausea And Vomiting Polyethylene Glycol (Polyethylene Glycol 3350 17 Gm Packet) 17 gm PO DAILY [facility] Last Admin: 07/31/21 07:53 Dose: Not Given Documented by: Senna (Sennosides 1 Tablet) 2 tab PO BID [facility] Last Admin: 07/31/21 07:54 Dose: Not Given Documented by: Sodium Chloride (0.9 % Sodium Chloride 10 Ml Syringe) 10 ml IV Q8 [facility] Last Admin: 07/31/21 04:46 Dose: Not Given Documented by: A/P Narrative A/P Narrative: Assessment: 86 year old female with a history of hypertension, atrial fibrillation not on anticoagulation due to prior ICH, GERD, s/p permanent pacemaker, removed melanoma without recurrence, psoriasis, and osteoporosis admitted for intractable worse over the iliac crest and bilateral lower hips. The patient was seen in the ED on 07/27/21 for the same pain, workup included pelvis and hip xray as well as a lumbar spine xray that was remarkable for thoracic and lumbar compression fractures at T11 and L2, respectively, and mild osteoarthritis in both hips with no acute abnormality. The patient was dis charged home with a prescription for hydrocodone that she filled and took as directed however presented again for persistent pain and inability to manage her ADLs due to pain. On exam, the pain appears to be over the bilateral iliac crest and in both hips. The pain is reproducible with palpation. She says this pain has occurred before and tends to occur more in the winter during cold weather. The pain is especially worse in the morning and associated with morning stiffness. There could be a component of inflammatory pain, the patient has a known history of psoriasis which is known to be associated with inflammatory pain in the form of arthritis, enthesitis, and tendosynovitis. #Intractable pain in lower back, sacroiliac joints , and bilateral hips -seems to be worse at the sacroiliac joints -suspect inflammatory pain -history of psoriasis noted #Diplopia possibly secondary to Indomethacin #T11 and L2 vertebral compression fractures of unknown chronicity #Thrombocytopenia #Essential hypertension #Atrial fibrillation not on anticoagulation due to prior ICH #Osteoporosis #GERD #History of psoriasis #Ascending aorta aneurysm #Permanent pacemaker #History of intracranial hemorrhage #History of melanoma Plan -Scheduled tylenol PO, warm packs prn. -Discontinue Indomethacin. -CT head. -Avoid opioids if possible. -Bowel regimen. -Prilosec 40 mg daily for GI prophylaxis. -PT and OT -Code status: DNR/DNI -Disposition: Probably TCU for rehab. Referral for rheumatology when discharged. Time Spent With Patient Time: Total time spent is greater than 50% in coordination of care (as documented) at patient's floor/unit and/or counseling patient: QUALITY VTE Deep Vein Thrombosis/Pulmonary Embolism Present on Admission: No
[2021-07-31] MEDS: NAPROXEN 250 MG TABLET PO SCH (16:32)
[2021-08-01] MEDS: 0.9 % SODIUM CHLORIDE 10 ML SYRINGE IV SCH ×3 (05:53→20:51)
[2021-08-01] MEDS: ACETAMINOPHEN 500 MG TABLET PO SCH ×3 (05:54→20:50)
[2021-08-01] MEDS: FUROSEMIDE 20 MG TABLET PO SCH (09:08)
[2021-08-01] MEDS: amLODIPine 5 MG TABLET PO SCH (09:08)
[2021-08-01] MEDS: OMEPRAZOLE 20 MG CAPSULE PO SCH (09:08)
[2021-08-01] MEDS: DOCUSATE SODIUM 100 MG CAPSULE PO SCH ×2 (09:08→20:51)
[2021-08-01] MEDS: POLYETHYLENE GLYCOL 3350 17 GM PACKET PO SCH (09:09)
[2021-08-01] MEDS: SENNOSIDES 1 TABLET PO SCH ×2 (09:09→20:51)
[2021-08-01] MEDS: METOPROLOL SUCCINATE 50 MG TAB.XL.24H PO SCH ×2 (09:09→20:50)
[2021-08-01] MEDS: KETOROLAC 15 MG/ML VIAL IV SCH ×3 (09:51→20:49)
[2021-08-01] MEDS: NAPROXEN 250 MG TABLET PO SCH (11:16)
--- NOTE | 2021-08-01 18:46 | Internal Med Progress Note ---
SUBJECTIVE Subjective Patient information: Note initiated : 08/01/21 at 6:43 pm Service Date, if different from initiated Date: [] Patient: Sherice Danielson 86 y/o F admitted on 07/31/21 for a-fib rvr, back pain, compression fx, arthritis. Chief Complaint: [] Interval history: Sherice Danielson is a 86 year old female with a history of hypertension, atrial fibrillation not on anticoagulation due to prior ICH, GERD, s/p permanent pacemaker, removed melanoma without recurrence, psoriasis, and osteoporosis admitted for intractable worse over the iliac crest and bilateral lower hips. The patient was seen in the ED on 07/27/21 for the same pain, workup included pelvis and hip xray as well as a lumbar spine xray that was remarkable for thoracic and lumbar compression fractures at T11 and L2, respectively, and mild osteoarthritis in both hips with no acute abnormality. The patient was discharged home with a prescription for hydrocodone that she filled and took as directed however presented again for persistent pain and inability to manage her ADLs due to pain. On exam, the pain appears to be over the bilateral iliac crest and in both hips. The pain is reproducible with palpation. She says this pain has occurred before and tends to occur more in the winter during cold weather. The pain is especially worse in the morning and associated with morning stiffness. 07/30 Pain has improved, transitioned from Toradol to Indomethacin TID. Awaiting PT evaluation. 07/31 The patient complained of diplopia and vision changes after receiving Ind omethacin. Discontinued Indomethacin, CT head ordered. 08/01 CT head was negative for acute changes. The patient's back pain is much more severe without NSAIDS, started scheduled IV Toradol. Ordered MRI to evaluate her sacroiliac spine for evidence of sacroilliitis. Review of systems: Positive for diplopia, persistent back pain, denies chills, fevers, chest pain, dyspnea. Physical exam Head: Atraumatic, normal inspection. Eyes: normal appearance, no scleral icterus. Neck: full ROM Respiratory: no respiratory distress. Cardiovascular: normal rate and rhythm, S1, S2. GI/Abdominal: soft, nontender, no guarding. Extremities: tenderness to palpation over bilateral sacroiliac joints Neurological: CN II-XII intact, intact motor, intact sensation. Psychiatric: normal mood. Skin: warm, normal color Constitutional Vitals: Vital Signs Temp Pulse Resp BP Pulse Ox 97.5 F 80 16 100/52 95 08/01/21 16:00 08/01/21 16:00 08/01/21 16:00 08/01/21 16:00 08/01/21 16:00 Period Temp Pulse Resp BP Sys/Booth Pulse Ox Last 24 Hr 96.5 F-98.6 F 80-96 16-16 90-119/52-81 90-96 Intake and Output 08/01/21 08/01/21 08/01/21 05:59 13:59 21:59 Intake Total 100 120 Output Total 2 Balance 100 118 Weight 48.58 kg Patient Weight 08/02/21 05:59 Weight 48.58 kg Intake & Output: Intake & Output 08/01/21 08/01/21 08/01/21 05:59 13:59 21:59 Intake Total 100 120 Output Total 2 Balance 100 118 Weight 48.58 kg Intake: Oral 100 120 Output: # of times incontinent of urine 2 Other: Meal Breakfast Nourishment/Supplement Percent of Meal Consumed 100% 100% Feeding Ability Independent Independent Urine Color Light [place] Stool Size Small # Voids 1 1 4 # Bowel Movements 1 OBJ DATA Labs CBC & Chem 7: 07/30/21 05:00 07/30/21 05:00 Labs: Abnormal Lab Results 07/30/21 07/30/21 07/30/21 05:00 05:00 05:00 Plt Count 114 L MPV 11.8 H [place] % (Auto) 18.3 H [place] # (Auto) 1.39 H Chloride 94 L BUN 25 H Total Bilirubin 2.3 H C-Reactive Protein 14.20 H Meds: Medications Acetaminophen (Acetaminophen 500 Mg Tablet) 1,000 mg PO Q8H [facility]; Protocol Last Admin: 08/01/21 12:58 Dose: 1,000 mg Documented by: Amlodipine Besylate (Amlodipine 5 Mg Tablet) 5 mg PO QDAY [facility] Last Admin: 08/01/21 09:08 Dose: 5 mg Documented by: Docusate Sodium (Docusate Sodium 100 Mg Capsule) 100 mg PO BID [facility] Last Admin: 08/01/21 09:08 Dose: 100 mg Documented by: Furosemide (Furosemide 20 Mg Tablet) 10 mg PO DAILY [facility] Last Admin: 08/01/21 09:08 Dose: 10 mg Documented by: Ketorolac Tromethamine (Ketorolac 15 Mg/Ml Vial) 15 mg IV Q6H [facility] Stop: 08/03/21 03:01 Last Admin: 08/01/21 12:59 Dose: 15 mg Documented by: Metoprolol Succinate (Metoprolol Succinate 50 Mg Tab.Xl.24h) 50 mg PO BID [facility] Last Admin: 08/01/21 09:09 Dose: 50 mg Documented by: Omeprazole (Omeprazole 20 Mg Capsule) 40 mg PO DAILY [facility] Last Admin: 08/01/21 09:08 Dose: 40 mg Documented by: Ondansetron HCl (Ondansetron 4 Mg/2 Ml Vial) 4 mg IV Q6HP PRN PRN Reason: Nausea And Vomiting Polyethylene Glycol (Polyethylene Glycol 3350 17 Gm Packet) 17 gm PO DAILY [facility] Last Admin: 08/01/21 09:09 Dose: Not Given Documented by: Senna (Sennosides 1 Tablet) 2 tab PO BID [facility] Last Admin: 08/01/21 09:09 Dose: Not Given Documented by: Sodium Chloride (0.9 % Sodium Chloride 10 Ml Syringe) 10 ml IV Q8 [facility] Last Admin: 08/01/21 12:50 Dose: Not Given Documented by: A/P Narrative A/P Narrative: Assessment: 86 year old female with a history of hypertension, atrial fibrillation not on anticoagulation due to prior ICH, GERD, s/p permanent pacemaker, removed melanoma without recurrence, psoriasis, and osteoporosis admitted for intractable worse over the iliac crest and bilateral lower hips. The patient was seen in the ED on 07/27/21 for the same pain, workup included pelvis and hip xray as well as a lumbar spine xray that was remarkable for thoracic and lumbar compression fractures at T11 and L2, respectively, and mild osteoarthritis in both hips with no acute abnormality. The patient was discharged home with a prescription for hydrocodone that she filled and took as directed however presented again for persistent pain and inability to manage her ADLs due to pain. On exam, the pain appears to be over the bilateral iliac rich t and in both hips. The pain is reproducible with palpation. She says this pain has occurred before and tends to occur more in the winter during cold weather. The pain is especially worse in the morning and associated with morning stiffness. There could be a component of inflammatory pain, the patient has a known history of psoriasis which is known to be associated with inflammatory pain in the form of arthritis, enthesitis, and tendosynovitis. #Intractable pain in lower back, sacroiliac joints , and bilateral hips -seems to be worse at the sacroiliac joints -suspect inflammatory pain -history of psoriasis noted #Diplopia possibly secondary to Indomethacin #T11 and L2 vertebral compression fractures of unknown chronicity #Thrombocytopenia #Essential hypertension #Atrial fibrillation not on anticoagulation due to prior ICH #Osteoporosis #GERD #History of psoriasis #Ascending aorta aneurysm #Permanent pacemaker #History of intracranial hemorrhage #History of melanoma Plan -Scheduled tylenol PO, scheduled Tordal IV, warm packs prn. -MRI pelvis. -Avoid opioids if possible. -Bowel regimen. -Prilosec 40 mg daily for GI prophylaxis. -PT and OT -Code status: DNR/DNI -Disposition: Probably TCU for rehab. Referral for rheumatology when discharged. Time Spent With Patient Time: Total time spent is greater than 50% in coordination of care (as documented) at patient's floor/unit and/or counseling patient: QUALITY VTE Deep Vein Thrombosis/Pulmonary Embolism Present on Admission: No
[2021-08-01] MEDS ORDERED: traMADol 50 MG TABLET PO PRN (21:12)
[2021-08-02] MEDS: KETOROLAC 15 MG/ML VIAL IV SCH ×3 (02:53→17:28)
[2021-08-02] MEDS: 0.9 % SODIUM CHLORIDE 10 ML SYRINGE IV SCH ×4 (02:54→20:17)
[2021-08-02] MEDS: ACETAMINOPHEN 500 MG TABLET PO SCH ×2 (05:05→16:58)
[2021-08-02 09:59] LABS: Basophils # (Auto) 0.02 K/mcL (0.00-0.30); Basophils % (Auto) 0.3 % (0.0-2.0); Eosinophils # (Auto) 0.02 K/mcL (0.00-0.70); Eosinophils % (Auto) 0.3 % (0.0-7.0); Hematocrit 47.2 % (34.1-44.9); Lymphocytes # (Auto) 1.91 K/mcL (1.50-4.80); Mean Cell Volume 91.3 fL (80.0-100.0); Mean Corpuscular HGB Conc 33.9 g/dL (31.0-36.0); Mean Platelet Volume 11.5 fL (7.4-10.4); Monocytes % (Auto) 9.7 % (1.0-12.0); Neutrophils % (Auto) 58.7 % (38.0-78.0); Platelet Count 183 K/mcL (140-440); RBC 5.17 M/mcL (3.59-5.38); Red Cell Distribution Width 13.2 % (11.5-14.5); WBC 6.2 K/mcL (4.5-11.0)
[2021-08-02] MEDS: OMEPRAZOLE 20 MG CAPSULE PO SCH (10:03)
[2021-08-02] MEDS: FUROSEMIDE 20 MG TABLET PO SCH (10:03)
[2021-08-02] MEDS: DOCUSATE SODIUM 100 MG CAPSULE PO SCH ×2 (10:03→20:16)
[2021-08-02] MEDS: amLODIPine 5 MG TABLET PO SCH (10:04)
[2021-08-02] MEDS: POLYETHYLENE GLYCOL 3350 17 GM PACKET PO SCH (10:05)
[2021-08-02] MEDS: METOPROLOL SUCCINATE 50 MG TAB.XL.24H PO SCH ×2 (10:05→20:15)
[2021-08-02 10:06] LABS: ALT/SGPT 27 U/L (<40); AST/SGOT 34 U/L (<32); Albumin 4.1 gm/dL (3.2-5.2); Albumin/Globulin Ratio 1.6 (1.0-2.3); Alkaline Phosphatase 110 U/L (39-117); Bilirubin,Direct 0.3 mg/dL (<0.3); Bilirubin,Total 1.3 mg/dL (0.1-1.0); Blood Urea Nitrogen 25 mg/dL (8-23); Calcium 9.6 mg/dL (8.6-10.4); Carbon Dioxide 27 mmol/L (22-30); Chloride 94 mmol/L (96-108); Globulin 2.5 gm/dL (2.2-3.7); Glomerular Filtration Rate 59; Glucose 140 mg/dL (70-105); Lactate Dehydrogenase 293 U/L (135-225); Phosphorous 3.1 mg/dL (2.5-4.5); Triglycerides 100 mg/dL (<150); Uric Acid 4.3 mg/dL (2.5-8.0)
[2021-08-02] MEDS: SENNOSIDES 1 TABLET PO SCH ×2 (10:15→20:17)
[2021-08-02] MEDS ORDERED: MELOXICAM 7.5 MG TABLET PO SCH (14:25)
--- NOTE | 2021-08-02 16:15 | Internal Med Progress Note ---
SUBJECTIVE Subjective Patient information: Note initiated : 08/02/21 at 4:14 pm Service Date, if different from initiated Date: [] Patient: Sherice Danielson 86 y/o F admitted on 07/31/21 for a-fib rvr, back pain, compression fx, arthritis. Chief Complaint: [] Interval history: Sherice Danielson is a 86 year old female with a history of hypertension, atrial fibrillation not on anticoagulation due to prior ICH, GERD, s/p permanent pacemaker, removed melanoma without recurrence, psoriasis, and osteoporosis admitted for intractable worse over the iliac crest and bilateral lower hips. The patient was seen in the ED on 07/27/21 for the same pain, workup included pelvis and hip xray as well as a lumbar spine xray that was remarkable for thoracic and lumbar compression fractures at T11 and L2, respectively, and mild osteoarthritis in both hips with no acute abnormality. The patient was discharged home with a prescription for hydrocodone that she filled and took as directed however presented again for persistent pain and inability to manage her ADLs due to pain. On exam, the pain appears to be over the bilateral iliac crest and in both hips. The pain is reproducible with palpation. She says this pain has occurred before and tends to occur more in the winter during cold weather. The pain is especially worse in the morning and associated with morning stiffness. 07/30 Pain has improved, transitioned from Toradol to Indomethacin TID. Awaiting PT evaluation. 07/31 The patient complained of diplopia and vision changes after receiving Ind omethacin. Discontinued Indomethacin, CT head ordered. 08/01 CT head was negative for acute changes. The patient's back pain is much more severe without NSAIDS, started scheduled IV Toradol. Ordered MRI to evaluate her sacroiliac spine for evidence of sacroiliitis. 08/02 Unable to undergo MRI as pacemaker is not MRI compatible. The patient's back pain has significantly improved with scheduled IV Toradol. Started daily Meloxicam. Physical exam Head: Atraumatic, normal inspection. Eyes: normal appearance, no scleral icterus. Neck: full ROM Respiratory: no respiratory distress. Cardiovascular: normal rate and rhythm, S1, S2. GI/Abdominal: soft, nontender, no guarding. Extremities: tenderness to palpation over bilateral sacroiliac joints Neurological: CN II-XII intact, intact motor, intact sensation. Psychiatric: normal mood. Skin: warm, normal color Constitutional Vitals: Vital Signs Temp Pulse Resp BP Pulse Ox 96.9 F L 96 H 18 133/88 93 08/02/21 15:57 08/02/21 15:57 08/02/21 15:57 08/02/21 15:57 08/02/21 15:57 Period Temp Pulse Resp BP Sys/Booth Pulse Ox Last 24 Hr 96.9 F-98.7 F 92-103 18-24 127-151/86-97 90-95 Intake and Output 08/02/21 08/02/21 08/02/21 05:59 13:59 21:59 Intake Total 300 240 240 Output Total 2 Balance 298 240 240 Intake & Output: Intake & Output 08/02/21 08/02/21 08/02/21 05:59 13:59 21:59 Intake Total 300 240 240 Output Total 2 Balance 298 240 240 Intake: Oral 300 240 240 Output: # of times incontinent of urine 2 Other: Meal Breakfast Percent of Meal Consumed 100% Feeding Ability Independent Urine Appearance Clear Clear Clear Urine Color Pale Bright Yellow Bright Yellow Urine Odor Normal Normal Stool Size Small Moderate Moderate Stool Color Brown Brown Brown Stool Consistency Normal for Patient Formed Soft # Voids 3 2 1 # Bowel Movements 1 1 1 OBJ DATA Labs CBC & Chem 7: 08/02/21 09:00 08/02/21 09:00 Labs: Abnormal Lab Results 08/02/21 08/02/21 09:00 09:00 Hgb 16.0 H Hct 47.2 H MPV 11.5 H Chloride 94 L BUN 25 H Glucose 140 H Total Bilirubin 1.3 H Direct Bilirubin 0.3 H GGT 69 H AST 34 H Lactate Dehydrogenase 293 H Meds: Medications Acetaminophen (Acetaminophen 500 Mg Tablet) 1,000 mg PO Q8H [facility]; Protocol Last Admin: 08/02/21 05:05 Dose: 1,000 mg Documented by: Amlodipine Besylate (Amlodipine 5 Mg Tablet) 5 mg PO QDAY [facility] Last Admin: 08/02/21 10:04 Dose: 5 mg Documented by: Docusate Sodium (Docusate Sodium 100 Mg Capsule) 100 mg PO BID [facility] Last Admin: 08/02/21 10:03 Dose: 100 mg Documented by: Furosemide (Furosemide 20 Mg Tablet) 10 mg PO DAILY [facility] Last Admin: 08/02/21 10:03 Dose: 10 mg Documented by: Ketorolac Tromethamine (Ketorolac 15 Mg/Ml Vial) 15 mg IV Q6H [facility] Stop: 08/03/21 03:01 Last Admin: 08/02/21 10:17 Dose: Not Given Documented by: Meloxicam (Meloxicam 7.5 Mg Tablet) 7.5 mg PO DAILY [facility]; Protocol Metoprolol Succinate (Metoprolol Succinate 50 Mg Tab.Xl.24h) 50 mg PO BID [facility] Last Admin: 08/02/21 10:05 Dose: 50 mg Documented by: Omeprazole (Omeprazole 20 Mg Capsule) 40 mg PO DAILY [facility] Last Admin: 08/02/21 10:03 Dose: 40 mg Documented by: Ondansetron HCl (Ondansetron 4 Mg/2 Ml Vial) 4 mg IV Q6HP PRN PRN Reason: Nausea And Vomiting Polyethylene Glycol (Polyethylene Glycol 3350 17 Gm Packet) 17 gm PO DAILY [facility] Last Admin: 08/02/21 10:05 Dose: 17 gm Documented by: Senna (Sennosides 1 Tablet) 2 tab PO BID [facility] Last Admin: 08/02/21 10:15 Dose: Not Given Documented by: Sodium Chloride (0.9 % Sodium Chloride 10 Ml Syringe) 10 ml IV Q8 [facility] Last Admin: 08/02/21 04:42 Dose: Not Given Documented by: A/P Narrative A/P Narrative: Assessment: 86 year old female with a history of hypertension, atrial fibrillation not on anticoagulation due to prior ICH, GERD, s/p permanent pacemaker, removed melanoma without recurrence, psoriasis, and osteoporosis admitted for intractable worse over the bilateral sacroiliac joints. The patient was seen in the ED on 07/27/21 for the same pain, workup included pelvis and hip xray as well as a lumbar spine xray that was remarkable for thoracic and lumbar compression fractures at T11 and L2, respectively, and mild osteoarthritis in both hips with no acute abnormality. The patient was discharged home with a prescription for hydrocodone that she filled and took as directed however presented again to the ED for persistent back pain and inability to manage her ADLs due to the pain. She says this pain has occurred before and tends to occur more in the winter during cold weather. The pain is especially worse in the morning and associated with morning stiffness. There could be a component of inflammatory pain, the patient has a known history of psoriasis which is known to be associated with sacroiliitis which is the prominent location of her pain. Additionally, her back pain has responded best to NSAIDs. She says she has also had back pain relief from Methotrexate in the past however that was discontinued due to exacerbation of psoriasis skin lesions. #Intractable pain in lower back predominantly bilateral sacroiliac joints likely sacroiliitis -suspect inflammatory pain in the form of sacroiliitis secondary to psoriasis -unable to get MRI to confirm due to noncompatible pacemaker #T11 and L2 vertebral compression fractures of unknown chronicity -doubt this is causing her back pain #Essential hypertension #Atrial fibrillation not on anticoagulation due to prior ICH #Osteoporosis #GERD #History of psoriasis #Ascending aorta aneurysm #Permanent pacemaker #History of intracranial hemorrhage #History of melanoma Plan -Scheduled tylenol PO, scheduled Tordal IV, warm packs prn. -Start Meloxicam 7.5 mg daily. -Avoid opioids. -Bowel regimen. -Continue home Toprol, Norvasc, and Lasix. -Prilosec 40 mg daily for GI prophylaxis. -PT and OT -Code status: DNR/DNI -Disposition: Probably TCU for rehab when pain controlled of oral medications. Referral for rheumatology when discharged. Time Spent With Patient Time: Total time spent is greater than 50% in coordination of care (as documented) at patient's floor/unit and/or counseling patient: QUALITY VTE Deep Vein Thrombosis/Pulmonary Embolism Present on Admission: No
[2021-08-02] MEDS: KETOROLAC 30 MG/ML VIAL IV SCH (16:54)
[2021-08-02] MEDS: MELOXICAM 7.5 MG TABLET PO SCH (16:56)
[2021-08-03] MEDS: KETOROLAC 30 MG/ML VIAL IV SCH (00:09)
[2021-08-03] MEDS: ACETAMINOPHEN 500 MG TABLET PO SCH ×2 (00:09→06:11)
[2021-08-03] MEDS: 0.9 % SODIUM CHLORIDE 10 ML SYRINGE IV SCH (05:35)
[2021-08-03 06:41] LABS: Basophils # (Auto) 0.02 K/mcL (0.00-0.30); Basophils % (Auto) 0.2 % (0.0-2.0); Eosinophils # (Auto) 0 K/mcL (0.00-0.70); Eosinophils % (Auto) 0 % (0.0-7.0); Hematocrit 42.9 % (34.1-44.9); Hemoglobin 14.8 g/dL (11.2-15.7); Lymphocytes # (Auto) 2.36 K/mcL (1.50-4.80); Lymphocytes % (Auto) 28.1 % (15.5-49.0); Mean Cell Volume 90.3 fL (80.0-100.0); Mean Corpuscular HGB Conc 34.5 g/dL (31.0-36.0); Mean Platelet Volume 11.3 fL (7.4-10.4); Monocytes # (Auto) 1.39 K/mcL (0.10-0.90); Monocytes % (Auto) 16.6 % (1.0-12.0); Neutrophils % (Auto) 55.1 % (38.0-78.0); Platelet Count 182 K/mcL (140-440); RBC 4.75 M/mcL (3.59-5.38); Red Cell Distribution Width 13.1 % (11.5-14.5); WBC 8.4 K/mcL (4.5-11.0)
[2021-08-03 07:10] LABS: Albumin 3.9 gm/dL (3.2-5.2); Blood Urea Nitrogen 28 mg/dL (8-23); Calcium 9.6 mg/dL (8.6-10.4); Carbon Dioxide 28 mmol/L (22-30); Chloride 94 mmol/L (96-108); Glomerular Filtration Rate 68; Glucose 97 mg/dL (70-105)
[2021-08-03] MEDS: METOPROLOL SUCCINATE 50 MG TAB.XL.24H PO SCH (08:56)
[2021-08-03] MEDS: OMEPRAZOLE 20 MG CAPSULE PO SCH (08:57)
[2021-08-03] MEDS: MELOXICAM 7.5 MG TABLET PO SCH (08:57)
[2021-08-03] MEDS: FUROSEMIDE 20 MG TABLET PO SCH (08:57)
[2021-08-03] MEDS: amLODIPine 5 MG TABLET PO SCH (08:57)
[2021-08-03] MEDS: DOCUSATE SODIUM 100 MG CAPSULE PO SCH (08:59)
[2021-08-03] MEDS: POLYETHYLENE GLYCOL 3350 17 GM PACKET PO SCH (08:59)
[2021-08-03] MEDS: SENNOSIDES 1 TABLET PO SCH (09:00)
--- NOTE | 2021-08-03 09:22 | Discharge Summary ---
Discharge Provider Provider Patient information: Note initiated : 08/03/21 at 9:20 am Service Date, if different from initiated Date: [] Patient: Sherice Danielson 86 y/o F admitted on 07/31/21 for a-fib rvr, back pain, compression fx, arthritis. Chief Complaint: [] Date of admission: 07/31/21 12:13 Discharge date: 08/03/21 Primary care physician: Paola Lindo Consults: 07/29/21 Consult to Physician [CONS] Stat Comment: Consulting Provider: Derrek Richard Reason For Exam: Physician to Consult Discharge Meds Discharge Medications Home Medications metoprolol succinate 50 mg tablet,extended release 24 hr 50 mg PO BID 12/29/20 [History Confirmed 07/29/21 Last Taken 12/29/20] amlodipine 5 mg tablet 5 mg PO QDAY 07/27/21 [History Confirmed 07/29/21 Last Taken Unknown] furosemide 20 mg tablet 10 mg PO DAILY 07/27/21 [History Confirmed 07/29/21 Last Taken Unknown] Adult Probiotic 1 cap PO DAILY 07/29/21 [History Confirmed 07/29/21 Last Taken Unknown] Adults Multivitamin 1 tab PO DAILY 07/29/21 [History Confirmed 07/29/21 Last Taken Unknown] Calcium Citrate With D 63 mg PO DAILY 07/29/21 [History Confirmed 07/29/21 Last Taken Unknown] acetaminophen 500 mg tablet 1,000 mg PO Q8H PRN #30 tab 08/03/21 [Rx Last Taken Unknown] meloxicam 7.5 mg tablet 7.5 mg PO DAILY #60 tab 08/03/21 [Rx Last Taken Unknown] omeprazole 20 mg capsule,delayed release 40 mg PO DAILY #60 cap 08/03/21 [Rx Last Taken Unknown] COURSE Hospital Course Hospital course: Sherice Danielson is a 86 year old female with a history of hypertension, atrial fibrillation not on anticoagulation due to prior ICH, GERD, s/p permanent pacemaker, removed melanoma without recurrence, psoriasis, and osteoporosis admitted for intractable worse over the iliac crest and bilateral lower hips. The patient was seen in the ED on 07/27/21 for the same pain, workup included pelvis and hip xray as well as a lumbar spine xray that was remarkable for thoracic and lumbar compression fractures at T11 and L2, respectively, and mild osteoarthritis in both hips with no acute abnormality. The patient was discharged home with a prescription for hydrocodone that she filled and took as directed however presented again for persistent pain and inability to manage her ADLs due to pain. On exam, the pain appears to be over the bilateral iliac crest and in both hips. The pain is reproducible with palpation. She says this pain has occurred before and tends to occur more in the winter during cold weather. The pain is especially worse in the morning and associated with morning stiffness. 07/30 Pain has improved, transitioned from Toradol to Indomethacin TID. Awaiting PT evaluation. 07/31 The patient complained of diplopia and vision changes after receiving Indom ethacin. Discontinued Indomethacin, CT head ordered. 08/01 CT head was negative for acute changes. The patient's back pain is much more severe without NSAIDS, started scheduled IV Toradol. Ordered MRI to evaluate her sacroiliac spine for evidence of sacroiliitis. 08/02 Unable to undergo MRI as her pacemaker is not MRI compatible. The patient's back pain has significantly improved with scheduled IV Toradol. Started daily Meloxicam. 08/03 Back pain about the same as yesterday, tolerating Meloxicam. Discharged to SNF for rehab. Referral placed for Rheumatology. Discharge diagnosis: Inflammatory back pain Secondary discharge diagnosis: Psoriasis Time Spent with Patient Time attestation: Total time spent providing and/or coordinating discharge services: EXAM Constitutional Vitals: Temp Pulse Resp BP Pulse Ox 98.0 F 97 H 16 153/103 91 08/03/21 06:52 08/03/21 06:52 08/03/21 06:52 08/03/21 06:52 08/03/21 06:52 Discharge Data Data Completed and Pending Labs on day of discharge: Labs from last 24 hours 08/03/21 08/03/21 08/02/21 05:25 05:25 09:00 WBC 8.4 RBC 4.75 Hgb 14.8 Hct 42.9 MCV 90.3 MCH 31.2 MCHC 34.5 RDW 13.1 Plt Count 182 MPV 11.3 H Neut % (Auto) 55.1 Lymph % (Auto) 28.1 [place] % (Auto) 16.6 H Eos % (Auto) 0 Baso % (Auto) 0.2 Lymph # (Auto) 2.36 [place] # (Auto) 1.39 H Eos # (Auto) 0 Baso # (Auto) 0.02 Absolute Neutrophils 4.62 Sodium 132 L 134 Potassium 4.7 4.3 Chloride 94 L 94 L Carbon Dioxide 28 27 Anion Gap 10.0 13.0 BUN 28 H 25 H Creatinine 0.8 0.9 GFR Calculation 68 59 Glucose 97 140 H Uric Acid 4.3 Calcium 9.6 9.6 Phosphorus 3.0 3.1 Magnesium 2.0 Total Bilirubin 1.3 H Direct Bilirubin 0.3 H GGT 69 H AST 34 H ALT 27 Alkaline Phosphatase 110 Lactate Dehydrogenase 293 H Total Protein 6.6 Albumin 3.9 4.1 Globulin 2.5 Albumin/Globulin Ratio 1.6 Triglycerides 100 08/02/21 09:00 WBC 6.2 RBC 5.17 Hgb 16.0 H Hct 47.2 H MCV 91.3 MCH 30.9 MCHC 33.9 RDW 13.2 Plt Count 183 MPV 11.5 H Neut % (Auto) 58.7 Lymph % (Auto) 31.0 [place] % (Auto) 9.7 Eos % (Auto) 0.3 Baso % (Auto) 0.3 Lymph # (Auto) 1.91 [place] # (Auto) 0.60 Eos # (Auto) 0.02 Baso # (Auto) 0.02 Absolute Neutrophils 3.62 Sodium Potassium Chloride Carbon Dioxide Anion Gap BUN Creatinine GFR Calculation Glucose Uric Acid Calcium Phosphorus Magnesium Total Bilirubin Direct Bilirubin GGT AST ALT Alkaline Phosphatase Lactate Dehydrogenase Total Protein Albumin Globulin Albumin/Globulin Ratio Triglycerides Discharge Plan Patient/Caregiver Discharge Instructions Activity: as per physical therapy Diet: Regular Diet Prescriptions: New omeprazole 20 mg Capsule,Delayed Release(Dr/Ec) 40 mg PO DAILY Qty: 60 3RF acetaminophen 500 mg Tablet 1,000 mg PO Q8H PRN (Reason: pain) Qty: 30 0RF meloxicam 7.5 mg Tablet 7.5 mg PO DAILY Qty: 60 3RF Continued metoprolol succinate 50 mg tablet extended release 24 hr 50 mg PO BID 0RF amlodipine 5 mg Tablet 5 mg PO QDAY 0RF furosemide 20 mg Tablet 10 mg PO DAILY 0RF Adult Probiotic 1 cap PO DAILY 0RF Adults Multivitamin 1 tab PO DAILY 0RF Calcium Citrate With D 63 mg PO DAILY 0RF Discontinued omeprazole 20 MG capsule 20 mg PO BID 0RF acetaminophen [Tylenol Extra Strength] 500 mg Tablet 500 mg PO Q6H PRN (Reason: Pain) 0RF omeprazole 20 mg PO DAILY 0RF Other Ambulatory Orders: OT Discharge Order (Routine) Location: None Selected Ordered By: Derrek Richard Physical Therapy at Discharge - General (Routine) Location: None Selected Ordered By: Derrek Richard Follow Up Plan Follow up with: [facility] [Provider Group] (Post hospital follow up for evaluation of inflammatory back pain due to psoriasis. ) Paola Lindo MD [Primary Care Provider] - Patient Disposition: Xfer SNF Prognosis: Fair Rehab Potential: Fair I certify that the patient requires SNF services: Yes Overall status at discharge: patient is progressing back to baseline Discharge Orders: Discharge Order (Routine); Ordered 08/03/21 Ordered By: Derrek Richard QUALITY VTE Deep Vein Thrombosis/Pulmonary Embolism Present on Admission: No
== END 2021-08-03 11:30 | DRG 546 ==
LOC: ED 09:36 → INTOOBSV 16:10 → MEDSUR 16:10
PROVIDERS: ADMIT Internal Medicine; ATTEND Internal Medicine

== ENCOUNTER 2021-11-15 15:14 | Inpatient (IN) ==
--- NOTE | 2021-11-15 15:36 | Emergency Department Note ---
Extremity Problem HPI General Chief complaint: Extremity Problem,Nontraumatic Stated complaint: Right groin pain Time Seen by Provider: 11/15/21 15:16 Source: patient and family Mode of arrival: wheelchair Limitations: no limitations History of Present Illness HPI Narrative: Narrative: 86-year-old female presents the ER to be evaluated for right hip and groin pain. She fell approximately a month ago and was evaluated here at [facility] and had a negative CT scan her right hip. She was unable to bear weight after the fall but started ambulating the emergency room and was ultimately discharged. She states she was doing better but she felt a pop in her hip recently and has had worsening pain over the last day or 2 and can no longer bear weight. Her pain radiates into her groin. She denies flank pain, dysuria, urgency, frequency or hematuria. She states narcotics make her loopy and she does not want any all she takes is Tylenol for pain. She has a history of hypertension and atrial fibrillation. She is not anticoagulated for this. She denies any chest pain or chest pressure. Her main complaint is her right hip and groin pain. Related Data Home Medications Medication Instructions Recorded Confirmed metoprolol succinate 50 mg 50 mg PO BID 12/29/20 11/13/21 tablet,extended release 24 hr amlodipine 5 mg tablet 5 mg PO QDAY 07/27/21 11/13/21 furosemide 20 mg tablet 10 mg PO DAILY 07/27/21 11/13/21 Adult Probiotic 1 cap PO DAILY 07/29/21 11/13/21 Adults Multivitamin 1 tab PO DAILY 07/29/21 11/13/21 Calcium Citrate With D 63 mg PO DAILY 07/29/21 11/13/21 Previous Rx's Medication Instructions Recorded acetaminophen 500 mg tablet 1,000 mg PO Q8H PRN #30 tab 08/03/21 meloxicam 7.5 mg tablet 7.5 mg PO DAILY #60 tab 08/03/21 omeprazole 20 mg capsule,delayed 40 mg PO DAILY #60 cap 08/03/21 release tramadol 50 mg tablet 50 mg PO .q8hr PRN #90 tab MDD 3 10/04/21 Allergies Allergy/AdvReac Type Severity Reaction Status Date / Time celecoxib Allergy Unknown Unknown Verified 11/15/21 15:14 folic acid Allergy Unknown Unknown Verified 11/15/21 15:14 methotrexate Allergy Unknown Unknown Verified 11/15/21 15:14 Tkyxcer-UXO-JbU Reductase Allergy Unknown Unknown Verified 11/15/21 15:14 Inhibitor [Sbghius-Sqv-Lbp Reductase Inhibitor] codeine [CODEINE] AdvReac Intermediate Syncope Verified 11/15/21 15:14 losartan AdvReac Mild bad dreams Verified 11/15/21 15:14 Review of Systems ROS ROS Narrative: Narrative: All systems ED: reviewed and negative except as stated. [facility] Narrative Patient History Narrative: Narrative: Medical/Surgical/Family History All Active Problems (Updated 11/15/21 @ 17:02 by Eligio Acevedo PA-C) Closed pelvic fracture (Acute) Osteoarthritis of left hip (Acute) Left hip pain (Acute) Osteoarthritis of right hip (Acute) Pain in right hip (Acute) Thoracic back pain (Acute) Lumbar pain (Acute) Other low back pain (Acute) Age-related osteoporosis with current pathological fracture, vertebra(e), initial encounter for fracture (Acute) Pacemaker (Acute) History of permanent cardiac pacemaker placement (Acute) Severe back pain (Chronic) Lumbar compression fracture (Chronic) Thoracic compression fracture (Chronic) Atrial fibrillation (Acute) Intracranial hemorrhage (Acute) Bleeding in mouth (Acute) Arthritis of both hips (Acute) Closed compression fracture of L2 vertebra (Acute) Closed compression fracture of lumbar vertebra (Acute) Self-care deficit (Acute) Uncontrolled pain (Acute) Rash and nonspecific skin eruption (Acute) Osteoarthritis (Acute) Polyarthralgia (Acute) Encounter for long-term (current) use of high-risk medication (Acute) 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) Melanoma of right upper arm (Chronic) Basal cell carcinoma (Chronic) Fibromyalgia (Chronic) Osteoporosis (Chronic) Eczema (Chronic) Personal history of malignant melanoma of skin (Chronic) Renal cyst (Chronic) Pelvic varices (Chronic) Vulvitis (Chronic) Bilateral hip pain (Chronic) Osteoarthritis cervical spine (Chronic) Paresthesia of upper limb (Chronic) High risk medication use (Chronic) Elevated C-reactive protein (Chronic) GERD (gastroesophageal reflux disease) (Chronic) Aneurysm of ascending aorta (Chronic) Atrial flutter (Chronic) Hypercholesteremia (Chronic) Hypertension (Chronic) 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) Muscle spasm of back (Chronic) Medical History Age-related osteoporosis with current pathological fracture, vertebra(e), initial encounter for fracture Aneurysm of ascending aorta Atrial flutter Basal cell carcinoma Bilateral hip pain Disorder of vagina Eczema Elevated C-reactive protein Encounter for long-term (current) use of high-risk medication Fibromyalgia GERD (gastroesophageal reflux disease) High risk medication use Hypercholesteremia Hypertension Idiopathic osteoarthritis Left hip pain Lumbar compression fracture Melanoma of right upper arm Muscle spasm of back Osteoarthritis Osteoarthritis cervical spine Osteoarthritis of right hip Osteoporosis Pacemaker Pain in right hip Paresthesia of upper limb Pelvic varices Personal history of malignant melanoma of skin Polyarthralgia Pain is managed with acetaminophen. Has tried multiple medications which has improved joint pain and rash initially but after 4-6 months, effectiveness stops. Currently taking only acetaminophen. Discussed adding topical diclofenac and she is willing. Psoriasis with arthropathy Rash on feet is reported worse. She is using a topical moisturizing cream. Unable to afford Otezla and she did not start this. Discussed [employer] and potential for the patient assistance program. May consider after evaluation of labs by primary provider. Psoriasis with pustules Rash and nonspecific skin eruption Renal cyst Severe back pain Thoracic compression fracture Vulvitis Surgical History History of hysterectomy History of permanent cardiac pacemaker placement History of suburethral sling procedure Hx of cataract surgery Bilateral Family History Sister History of cancer Diabetes Mother Arthritis Diabetes Father Arthritis Other No pertinent family history Social History Smoking Status: Former smoker Alcohol Intake Frequency: 0-2 drinks per day Substance Use: does not use Exam Narrative Narrative: Narrative: Gen: No acute distress Eyes: PERRL, no conjunctival injection , and symmetrical lids. Sclerae non icteric HENMT: Normocephalic Atraumatic head, external nose and ears. Moist MM. CVS: Irregularly irregular, no murmur Radial pulses 2+ and equal bilat. No swelling RESP: Unlabored respiratory effort . Clear to auscultation bilaterally (CTAB). No noted wheezes rales or ronchi. GI: Nontender/Nondistended (NTND), No focal tenderness MSK: Right groin and hip pain, no shortening of the leg, DP and PT are 2+, normal sensation of the distal extremity, pain with internal and external rotation. Patient cannot bear weight Skin: Warm, Dry . No rashes or lesions . Cap refill less than 2. Neuro: No focal neurological deficit Psych: Awake, Alert, & Oriented (AAO) x3. Appropriate mood and affect . General Limitations: no limitations Course Vital Signs Vital signs: Vital Signs Temperature 97.7 F 11/15/21 15:14 Pulse Rate 63 11/15/21 15:14 Respiratory Rate 18 11/15/21 15:14 Blood Pressure 150/126 11/15/21 15:14 Pulse Oximetry (%) 91 11/15/21 15:14 Temperature 97.7 F 11/15/21 15:14 Pulse Rate 63 11/15/21 15:14 Respiratory Rate 18 11/15/21 15:14 Blood Pressure 150/126 11/15/21 15:14 Pulse Oximetry (%) 91 11/15/21 15:14 MDM MDM Narrative Medical decision making narrative: Narrative: Patient injured her hip about 4 weeks ago after a fall this is improved, few days ago she felt a pop in her hip. She does have a history of osteoporosis and multiple compression fractures. She will be evaluated with complete x-ray of the right hip. Hip x-ray: IMPRESSION: Subacute fractures of the right superior pubic bone, right inferior pubic ramus and possibly the left superior pubic ramus. These were occult on the prior examination Patient is here with her son and neighbor, given she cannot bear weight they are concerned they will not be able to take care of her at home. She sees home health twice a day however, she will be able to get up and out of the bed on her own or to the bathroom. She is refusing any pain medication at this time other than Tylenol. We discussed possible half-way, Maria Ines from case management will review her records and consult with the patient. Given the patient has a pelvic fracture she meets inpatient criteria, she was given Robaxin for pain as she does not want narcotics at this time. I spoke with Dr. Naylor on the phone who will bring her in for pain control and physical therapy evaluation and hopeful half-way placement either Friday or Friday. Dr. Naylor will be down to see the patient. Discharge Plan Patient/Caregiver Discharge Instructions Pt seen by PROFESSOR OF CHEMISTRY/PA only: Yes Clinical Impression: Closed pelvic fracture Patient Disposition: Xfer As Inpt ([facility]) Follow up with: Paola Lindo MD [Primary Care Provider] - Prescriptions: No Action tramadol 50 mg tablet 50 mg PO .q8hr MDD 3 PRN (Reason: pain) Qty: 90 0RF metoprolol succinate 50 mg tablet extended release 24 hr 50 mg PO BID 0RF amlodipine 5 mg Tablet 5 mg PO QDAY 0RF furosemide 20 mg Tablet 10 mg PO DAILY 0RF Adult Probiotic 1 cap PO DAILY 0RF Adults Multivitamin 1 tab PO DAILY 0RF Calcium Citrate With D 63 mg PO DAILY 0RF omeprazole 20 mg Capsule,Delayed Release(Dr/Ec) 40 mg PO DAILY Qty: 60 3RF acetaminophen 500 mg Tablet 1,000 mg PO Q8H PRN (Reason: pain) Qty: 30 0RF meloxicam 7.5 mg Tablet 7.5 mg PO DAILY Qty: 60 3RF
--- NOTE | 2021-11-15 16:00 | XRay Report ---
HISTORY: Fell 3 weeks ago with persistent right hip pain and difficulty bearing weight FINDINGS: There are subacute fractures through the right inferior pubic ramus and superior border of the right pubic bone. These were not present on the prior right hip CT performed on 10/07/21. There is some callus forming around the superior aspect of the right pubic bone, overlying the obturator foramen. There may be another nondisplaced fracture through the left superior pubic ramus. This was outside the field of view on the prior exam. There is minimal displacement of the fractures. Joint spaces in both hips are mildly narrowed and there are small marginal spurs due to arthritis. No hip fracture is present. The bones are osteopenic. Moderate amount of calcified plaque is present in the right common femoral artery. IMPRESSION: Subacute fractures of the right superior pubic bone, right inferior pubic ramus and possibly the left superior pubic ramus. These were occult on the prior examination Arthritis in both hips Interpreted and Authenticated by: Alpesh Vásquez 11/15/21
[2021-11-15] MEDS ORDERED: METHOCARBAMOL 500 MG TABLET PO ONE (16:52)
[2021-11-15] MEDS ORDERED: ACETAMINOPHEN 650 MG/65 ML BAG IV PRN (18:34)
[2021-11-15] MEDS ORDERED: ONDANSETRON 4 MG/2 ML VIAL IV PRN (18:34)
[2021-11-15] MEDS ORDERED: POTASSIUM CHLORIDE 20 MEQ PACKET PO PRN (18:34)
[2021-11-15] MEDS ORDERED: ONDANSETRON 4 MG ODT TABLET SL PRN (18:34)
[2021-11-15] MEDS ORDERED: BISACODYL 10 MG SUPP.RECT PR PRN (18:34)
[2021-11-15] MEDS ORDERED: HYDROcodone/APAP 5/325MG TABLET PO PRN (18:34)
[2021-11-15] MEDS ORDERED: POLYETHYLENE GLYCOL 3350 17 GM PACKET PO PRN (18:34)
[2021-11-15] MEDS ORDERED: MAGNESIUM SULFATE 2 GM/50 ML BAG IV PRN (18:34)
[2021-11-15] MEDS ORDERED: traMADol 50 MG TABLET PO PRN (18:34)
--- NOTE | 2021-11-15 18:55 | Internal Med History&Physical ---
HPI History of Present Illness Patient information: Note initiated : 11/15/21 at 6:47 pm Service Date, if different from initiated Date: [] Patient: Sherice Danielson a 86 y/o F admitted on 11/15/21 for Right groin pain. Chief Complaint: [] History of present illness: Ms. Danielson is a 86 year old F who lives with her and was in her usual state of health with well-controlled HTN/osteoporosis/DJD/A. fib and prior history of aneurysmal bleed who presents to the ER after experiencing pain this morning while she was walking and heard a pop around the right hip. She denies abrupt twisting motion or trauma. She immediately felt right-sided hip pain and difficulty weightbearing She helped herself using a walker to the bed. She was discovered by home health nurse in distress and unable to ambulate/weight- bear. She was thereafter sent to the ER for evaluation. Initial work-up was consistent with subacute fracture of the left superior rami/right superior pubic rami/right inferior pubic rami. Significant to presenting history, she fell 4 weeks ago and had a CT done which was unremarkable. During today's evaluation patient remained immobile and subsequently hospitalist service was consulted for admission for pain management/PT/possible transfer to halfway home. At the time of my evaluation patient is alert and oriented. She was able to answer most the questions and endorsed to history as above. She denies fever, chills, nausea, vomiting. She further denies bloody urine/bloody stool, weight loss. Review of systems 10 point review of system was performed and is negative except as above PFSH PFSH All Active Problems (Updated 11/15/21 @ 17:02 by Eligio Acevedo PA-C) Closed pelvic fracture (Acute) Osteoarthritis of left hip (Acute) Left hip pain (Acute) Osteoarthritis of right hip (Acute) Pain in right hip (Acute) Thoracic back pain (Acute) Lumbar pain (Acute) Other low back pain (Acute) Age-related osteoporosis with current pathological fracture, vertebra(e), initial encounter for fracture (Acute) Pacemaker (Acute) History of permanent cardiac pacemaker placement (Acute) Severe back pain (Chronic) Lumbar compression fracture (Chronic) Thoracic compression fracture (Chronic) Atrial fibrillation (Acute) Intracranial hemorrhage (Acute) Bleeding in mouth (Acute) Arthritis of both hips (Acute) Closed compression fracture of L2 vertebra (Acute) Closed compression fracture of lumbar vertebra (Acute) Self-care deficit (Acute) Uncontrolled pain (Acute) Rash and nonspecific skin eruption (Acute) Osteoarthritis (Acute) Polyarthralgia (Acute) Encounter for long-term (current) use of high-risk medication (Acute) 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) Melanoma of right upper arm (Chronic) Basal cell carcinoma (Chronic) Fibromyalgia (Chronic) Osteoporosis (Chronic) Eczema (Chronic) Personal history of malignant melanoma of skin (Chronic) Renal cyst (Chronic) Pelvic varices (Chronic) Vulvitis (Chronic) Bilateral hip pain (Chronic) Osteoarthritis cervical spine (Chronic) Paresthesia of upper limb (Chronic) High risk medication use (Chronic) Elevated C-reactive protein (Chronic) GERD (gastroesophageal reflux disease) (Chronic) Aneurysm of ascending aorta (Chronic) Atrial flutter (Chronic) Hypercholesteremia (Chronic) Hypertension (Chronic) 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) Muscle spasm of back (Chronic) Medical History Age-related osteoporosis with current pathological fracture, vertebra(e), initial encounter for fracture Aneurysm of ascending aorta Atrial flutter Basal cell carcinoma Bilateral hip pain Disorder of vagina Eczema Elevated C-reactive protein Encounter for long-term (current) use of high-risk medication Fibromyalgia GERD (gastroesophageal reflux disease) High risk medication use Hypercholesteremia Hypertension Idiopathic osteoarthritis Left hip pain Lumbar compression fracture Melanoma of right upper arm Muscle spasm of back Osteoarthritis Osteoarthritis cervical spine Osteoarthritis of right hip Osteoporosis Pacemaker Pain in right hip Paresthesia of upper limb Pelvic varices Personal history of malignant melanoma of skin Polyarthralgia Pain is managed with acetaminophen. Has tried multiple medications which has improved joint pain and rash initially but after 4-6 months, effectiveness stops. Currently taking only acetaminophen. Discussed adding topical diclofenac and she is willing. Psoriasis with arthropathy Rash on feet is reported worse. She is using a topical moisturizing cream. Unable to afford Otezla and she did not start this. Discussed [facility] and potential for the patient assistance program. May consider after evaluation of labs by primary provider. 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 smoking status: Never smoker alcohol intake frequency: 0-2 drinks per day substance use type: does not use MEDS/ALLERGIES Home Medications and Allergies Home Medications Medication Instructions Recorded Confirmed Type metoprolol succinate 50 mg 50 mg PO QAM 12/29/20 11/15/21 History tablet,extended release 24 hr Adult Probiotic 1 cap PO DAILY 07/29/21 11/15/21 History Adults Multivitamin 1 tab PO DAILY 07/29/21 11/15/21 History Calcium Citrate With D 63 mg PO DAILY 07/29/21 11/15/21 History meloxicam 7.5 mg tablet 7.5 mg PO DAILY #60 tab 08/03/21 11/15/21 Rx acetaminophen 500 mg tablet 1,000 mg PO Q8HP PRN 11/15/21 11/15/21 History omeprazole 20 mg capsule,delayed 40 mg PO BID 11/15/21 11/15/21 History release Allergies Allergy/AdvReac Type Severity Reaction Status Date / Time folic acid Allergy Intermediate Itching Verified 11/15/21 20:47 methotrexate Allergy Intermediate Itching Verified 11/15/21 20:47 codeine [CODEINE] AdvReac Severe Confusion Verified 11/15/21 20:47 celecoxib AdvReac Intermediate Confusion Verified 11/15/21 20:47 Vtznmox-CRS-QxQ Reductase AdvReac Intermediate Confusion Verified 11/15/21 20:47 Inhibitor [Jpumqyt-Lnk-Iyz Reductase Inhibitor] tramadol AdvReac Intermediate Confusion Verified 11/15/21 20:42 EXAM Constitutional Vitals: Temp Pulse Resp BP Pulse Ox 97.7 F 68 18 133/106 94 11/15/21 18:22 11/15/21 18:22 11/15/21 18:22 11/15/21 18:22 11/15/21 18:22 Alert oriented but anxious Head normocephalic Oral cavity moist No ear or nose discharge Eye no subconjunctival pallor, movement symmetrical S1-S2 occasionally irregular Nonlabored breathing Nondistended nontender abdomen Lower extremity no cyanosis clubbing or joint swelling, pain during weightbearing and hip flexion Skin no suspicious lesion Psych anxious but no hallucination Neuro normal higher function on limited neuro exam A/P Narrative A/P Narrative: * Multiple pelvic fractures. Continue pain management/PT OT, placement coordination per case management due to high risk subsequent falls and deconditioning * Pain management on as needed Tylenol * Osteoporosis continue calcium vitamin D * History of hypertension continue amlodipine/metoprolol * A. fib continue beta-jude * Prophylaxis SCDs. Patient carries history of aneurysmal bleed and hence refused DVT prophylaxis * DNR Plan * Inpatient admission * Pain management * Pre-existing medical condition management home medications * PT OT nutrition support * Discharge planning likely SNF Time Spent With Patient Time: Total time spent is greater than 50% in coordination of care (as documented) at patient's floor/unit and/or counseling patient:
[2021-11-15] MEDS: ACETAMINOPHEN 325 MG TABLET PO PRN (20:54)
[2021-11-15] MEDS: SENNOSIDES/DOCUSATE SODIUM 1 TAB TABLET PO SCH (20:56)
[2021-11-15] MEDS: METHOCARBAMOL 500 MG TABLET PO PRN (20:56)
[2021-11-15] MEDS: 0.9 % SODIUM CHLORIDE 10 ML SYRINGE IV SCH (20:56)
[2021-11-15] MEDS: DOCUSATE SODIUM 100 MG CAPSULE PO SCH (20:56)
[2021-11-15] MEDS: MELATONIN 3 MG TABLET PO PRN (20:56)
[2021-11-15] MEDS ORDERED: HEPARIN 5,000 UNIT/ML VIAL SQ SCH (21:00)
[2021-11-16] MEDS: ACETAMINOPHEN 325 MG TABLET PO PRN ×5 (02:37→21:31)
[2021-11-16] MEDS: 0.9 % SODIUM CHLORIDE 10 ML SYRINGE IV SCH ×3 (04:54→21:32)
[2021-11-16] MEDS: METHOCARBAMOL 500 MG TABLET PO PRN ×3 (04:56→21:32)
[2021-11-16 06:45] LABS: Basophils # (Auto) 0 K/mcL (0.00-0.30); Basophils % (Auto) 0 % (0.0-2.0); Eosinophils # (Auto) 0.03 K/mcL (0.00-0.70); Eosinophils % (Auto) 0.5 % (0.0-7.0); Hematocrit 42.8 % (34.1-44.9); Hemoglobin 14.6 g/dL (11.2-15.7); Mean Cell Volume 93.2 fL (80.0-100.0); Mean Corpuscular HGB Conc 34.1 g/dL (31.0-36.0); Mean Platelet Volume 11.1 fL (7.4-10.4); Monocytes # (Auto) 0.56 K/mcL (0.10-0.90); Monocytes % (Auto) 9.2 % (1.0-12.0); Neutrophils % (Auto) 62.3 % (38.0-78.0); Platelet Count 208 K/mcL (140-440); RBC 4.59 M/mcL (3.59-5.38); Red Cell Distribution Width 14.9 % (11.5-14.5); WBC 6.1 K/mcL (4.5-11.0)
[2021-11-16 07:20] LABS: ALT/SGPT 27 U/L (<40); AST/SGOT 26 U/L (<32); Albumin 3.9 gm/dL (3.2-5.2); Albumin/Globulin Ratio 1.5 (1.0-2.3); Alkaline Phosphatase 222 U/L (39-117); Bilirubin,Direct 0.2 mg/dL (<0.3); Bilirubin,Total 1.1 mg/dL (0.1-1.0); Blood Urea Nitrogen 25 mg/dL (8-23); Calcium 9.8 mg/dL (8.6-10.4); Carbon Dioxide 26 mmol/L (22-30); Chloride 95 mmol/L (96-108); Globulin 2.6 gm/dL (2.2-3.7); Glomerular Filtration Rate 79; Glucose 99 mg/dL (70-105); Lactate Dehydrogenase 258 U/L (135-225); Phosphorous 3.6 mg/dL (2.5-4.5); Triglycerides 120 mg/dL (<150); Uric Acid 3.5 mg/dL (2.5-8.0)
[2021-11-16] MEDS: DOCUSATE SODIUM 100 MG CAPSULE PO SCH ×2 (07:52→21:32)
[2021-11-16] MEDS: MULTIVIT,THER IRON,CA,FA & MIN 1 TABLET PO SCH (07:52)
--- NOTE | 2021-11-16 08:24 | Internal Med Progress Note ---
SUBJECTIVE Subjective Patient information: Note initiated : 11/16/21 at 8:21 am Service Date, if different from initiated Date: [] Patient: Sherice Danielson 86 y/o F admitted on 11/15/21 for Right groin pain. Chief Complaint: [] Interval history: Ms. Danielson is a 86 year old F who lives with her and was in her usual state of health with well-controlled HTN/osteoporosis/DJD/A. fib and prior history of aneurysmal bleed who presents to the ER after experiencing pain this morning while she was walking and heard a pop around the right hip. She denies abrupt twisting motion or trauma. She immediately felt right-sided hip pain and difficulty weightbearing She helped herself using a walker to the bed. She was discovered by home health nurse in distress and unable to ambulate/weight- bear. She was thereafter sent to the ER for evaluation. Initial work-up was consistent with subacute fracture of the left superior rami/right superior pubic rami/right inferior pubic rami. Significant to presenting history, she fell 4 weeks ago and had a CT done which was unremarkable. During today's evaluation patient remained immobile and sub sequently hospitalist service was consulted for admission for pain management/PT/possible transfer to group home home. 11/16 Ms. Boothe was seen in room this morning. In good spirits. No overnight event, significant pain. Was able to weight bear weight and use the bathroom. Restarting home medications. No fever chills. Continue therapies as tolerated. On Robaxin/Tylenol for pain management. Likely discharge to SNF, case management coordinating Constitutional Vitals: Vital Signs Temp Pulse Resp BP Pulse Ox 97.4 F 92 H 18 143/96 93 11/16/21 04:56 11/16/21 04:56 11/16/21 04:56 11/16/21 04:56 11/16/21 04:56 Period Temp Pulse Resp BP Sys/Booth Pulse Ox Last 24 Hr 97.4 F-98.6 F 63-130 16-18 115-150/75-126 90-94 Intake and Output 11/15/21 11/16/21 11/16/21 21:59 05:59 13:59 Intake Total 400 Output Total 650 1150 Balance -650 -750 Weight 44.452 kg Alert oriented Nonlabored breathing No anxiety Difficulty weightbearing and tenderness hip flexion Intake & Output: Intake & Output 11/15/21 11/16/21 11/16/21 21:59 05:59 13:59 Intake Total 400 Output Total 650 1150 Balance -650 -750 Weight 44.452 kg Intake: Oral 400 Output: Void Amount 650 1150 Other: Urine Appearance Clear Clear Urine Color Pale Pale OBJ DATA Labs CBC & Chem 7: 11/16/21 05:22 11/16/21 05:22 Labs: Abnormal Lab Results 11/16/21 11/16/21 05:22 05:22 RDW 14.9 H MPV 11.1 H Chloride 95 L BUN 25 H Total Bilirubin 1.1 H GGT 135 H Alkaline Phosphatase 222 H Lactate Dehydrogenase 258 H Meds: Medications Acetaminophen (Acetaminophen 325 Mg Tablet) 650 mg PO Q4-6HP PRN; Protocol PRN Reason: Per Pain Protocol/Fever > 101 Last Admin: 11/16/21 07:56 Dose: 650 mg Documented by: Bisacodyl (Bisacodyl 10 Mg Supp.Rect) 10 mg NC Q2-3DAYS PRN PRN Reason: Constipation Docusate Sodium (Docusate Sodium 100 Mg Capsule) 100 mg PO BID [facility] Last Admin: 11/16/21 07:52 Dose: 100 mg Documented by: Acetaminophen (Ofirmev) 650 mg in 65 mls @ 130 mls/hr IV Q6HP PRN; Protocol PRN Reason: Per Pain Protocol/Fever > 101 Magnesium Sulfate (Magnesium Sulfate) 2 gm in 50 mls @ 50 mls/hr IV UD PRN PRN Reason: MG = or < 1.7 Iron Carb/Multivit/Sand Caster Apprentice/Folic Acid (Multivit,Ther Iron,Ca,Fa & Min 1 Tablet) 1 tab PO DAILY [facility] Last Admin: 11/16/21 07:52 Dose: 1 tab Documented by: Melatonin (Melatonin 3 Mg Tablet) 3 mg PO HSP PRN PRN Reason: Insomnia Last Admin: 11/15/21 20:56 Dose: 3 mg Documented by: Methocarbamol (Methocarbamol 500 Mg Tablet) 500 mg PO BIDP PRN PRN Reason: Muscle Spasm Last Admin: 11/16/21 04:56 Dose: 500 mg Documented by: Ondansetron HCl (Ondansetron 4 Mg Odt Tablet) 4 mg SL Q4-6HP PRN; Protocol PRN Reason: Nausea And Vomiting Ondansetron HCl (Ondansetron 4 Mg/2 Ml Vial) 4 mg IV Q4-6HP PRN; Protocol PRN Reason: Nausea And Vomiting Polyethylene Glycol (Polyethylene Glycol 3350 17 Gm Packet) 17 gm PO DAILYP PRN PRN Reason: Constipation Potassium Chloride (Potassium Chloride 20 Meq Packet) 40 meq PO DAILYP PRN PRN Reason: K+ < 3.5 Senna/Docusate Sodium (Sennosides/Docusate Sodium 1 Tab Tablet) 1 tab PO HS [facility] Last Admin: 11/15/21 20:56 Dose: 1 tab Documented by: Sodium Chloride (0.9 % Sodium Chloride 10 Ml Syringe) 10 ml IV Q8 [facility] Last Admin: 11/16/21 04:54 Dose: 10 ml Documented by: A/P Narrative A/P Narrative: * Multiple pelvic fractures. Including right and left suprapubic rami. Clinically improved with continued pain management/PT OT, able to bear weight. Remainshigh risk subsequent falls and deconditioning. Case management coordinate SNF placement * Pain management on as needed Tylenol/Robaxin * Osteoporosis continue calcium vitamin D, on bisphosphonates as outpatient per patient * History of hypertension continue amlodipine/metoprolol * A. fib continue beta-jude. Not on anticoagulation or antiplatelet due to history of aneurysm * Prophylaxis SCDs. refused pharmacological DVT prophylaxis * DNR Plan * PT OT * Pain management * Pre-existing medical condition management home medications * Discharge planning likely SNF coordination per case management Time Spent With Patient Time: Total time spent is greater than 50% in coordination of care (as documented) at patient's floor/unit and/or counseling patient: Total time spent with greater than 50% in coordination of care (as documented) at patient's floor/unit and/or counseling patient:: 25 - 35 minutes QUALITY VTE Deep Vein Thrombosis/Pulmonary Embolism Present on Admission: No
[2021-11-16] MEDS: CALCIUM W/VIT D3 500 MG TABLET PO SCH (08:37)
[2021-11-16] MEDS: MELOXICAM 7.5 MG TABLET PO SCH (08:37)
[2021-11-16] MEDS: METOPROLOL SUCCINATE 50 MG TAB.XL.24H PO SCH (08:37)
[2021-11-16] MEDS: LACTOBACILLUS 1 CAPSULE PO SCH (08:38)
[2021-11-16] MEDS: OMEPRAZOLE 20 MG CAPSULE PO SCH ×2 (08:39→16:55)
[2021-11-16] MEDS ORDERED: [UNRECOGNIZED DRUG - OTHER] PO SCH (09:00)
--- NOTE | 2021-11-16 12:39 | Internal Med Progress Note ---
SUBJECTIVE Subjective Patient information: Note initiated : 11/16/21 at 12:35 pm Service Date, if different from initiated Date: [] Patient: Sherice Danielson 86 y/o F admitted on 11/15/21 for Right groin pain. Chief Complaint: [] Interval history: Ms. Danielson is a 86 year old F who lives with her and was in her usual state of health with well-controlled HTN/osteoporosis/DJD/A. fib and prior history of aneurysmal bleed who presents to the ER after experiencing pain this morning while she was walking and heard a pop around the right hip. She denies abrupt twisting motion or trauma. She immediately felt right-sided hip pain and difficulty weightbearing She helped herself using a walker to the bed. She was discovered by home health nurse in distress and unable to ambulate/weight- bear. She was thereafter sent to the ER for evaluation. Initial work-up was consistent with subacute fracture of the left superior rami/right superior pubic rami/right inferior pubic rami. Significant to presenting history, she fell 4 weeks ago and had a CT done which was unremarkable. During today's evaluation patient remained immobile and graff bsequently hospitalist service was consulted for admission for pain management/PT/possible transfer to [facility]. 11/16 Ms. Boothe was seen in room this morning. In good spirits. No overnight event, significant pain. Was able to weight bear weight and use the bathroom. Restarting home medications. No fever chills. Continue therapies as tolerated. On Robaxin/Tylenol for pain management. Likely discharge to SNF, case management coordinating Constitutional Vitals: Vital Signs Temp Pulse Resp BP Pulse Ox 98.0 F 123 H 16 119/82 90 11/16/21 11:37 11/16/21 11:37 11/16/21 11:37 11/16/21 11:37 11/16/21 11:37 Period Temp Pulse Resp BP Sys/Booth Pulse Ox Last 24 Hr 97.4 F-98.6 F 63-130 16-18 110-150/75-126 90-94 Intake and Output 11/15/21 11/16/21 11/16/21 21:59 05:59 13:59 Intake Total 400 Output Total 650 1150 Balance -650 -750 Weight 44.452 kg 44.452 kg Patient Weight 11/17/21 05:59 Weight 44.452 kg Intake & Output: Intake & Output 11/15/21 11/16/21 11/16/21 21:59 05:59 13:59 Intake Total 400 Output Total 650 1150 Balance -650 -750 Weight 44.452 kg 44.452 kg Intake: Oral 400 Output: Void Amount 650 1150 Other: Meal Breakfast Percent of Meal Consumed 100% Urine Appearance Clear Clear Urine Color Pale Pale Exam: General: Alert, Awake, No acute Distress Eyes/N/T: EOMI, Head/Neck: neck supple, CV: RRR, No murmurs, Pulm: Clear b/l, no wheezing/rhonchi/rales Abd: soft, nontender, +BS x4 Ext: no clubbing/cyanosis/edema Neuro: Alert, no focal deficits, moves all extremities, Skin: warm/dry OBJ DATA Labs CBC & Chem 7: 11/16/21 05:22 11/16/21 05:22 Labs: Abnormal Lab Results 11/16/21 11/16/21 05:22 05:22 RDW 14.9 H MPV 11.1 H Chloride 95 L BUN 25 H Total Bilirubin 1.1 H GGT 135 H Alkaline Phosphatase 222 H Lactate Dehydrogenase 258 H Meds: Medications Acetaminophen (Acetaminophen 325 Mg Tablet) 650 mg PO Q4-6HP PRN; Protocol PRN Reason: Per Pain Protocol/Fever > 101 Last Admin: 11/16/21 07:56 Dose: 650 mg Documented by: Bisacodyl (Bisacodyl 10 Mg Supp.Rect) 10 mg ND Q2-3DAYS PRN PRN Reason: Constipation Calcium/Vitamin D (Calcium W/Vit D3 500 Mg Tablet) 500 mg PO DAILY [facility] Last Admin: 11/16/21 08:37 Dose: 500 mg Documented by: Docusate Sodium (Docusate Sodium 100 Mg Capsule) 100 mg PO BID [facility] Last Admin: 11/16/21 07:52 Dose: 100 mg Documented by: Acetaminophen (Ofirmev) 650 mg in 65 mls @ 130 mls/hr IV Q6HP PRN; Protocol PRN Reason: Per Pain Protocol/Fever > 101 Magnesium Sulfate (Magnesium Sulfate) 2 gm in 50 mls @ 50 mls/hr IV UD PRN PRN Reason: MG = or < 1.7 Iron Carb/Multivit/[employer]t [employer] [place]/Folic Acid (Multivit,Ther Iron,Ca,Fa & Min 1 Tablet) 1 tab PO DAILY [facility] Last Admin: 11/16/21 07:52 Dose: 1 tab Documented by: Lactobacillus Rhamnosus (Lactobacillus 1 Capsule) 1 cap PO DAILY [facility] Last Admin: 11/16/21 08:38 Dose: 1 cap Documented by: Melatonin (Melatonin 3 Mg Tablet) 3 mg PO HSP PRN PRN Reason: Insomnia Last Admin: 11/15/21 20:56 Dose: 3 mg Documented by: Meloxicam (Meloxicam 7.5 Mg Tablet) 7.5 mg PO DAILY [facility]; Protocol Last Admin: 11/16/21 08:37 Dose: 7.5 mg Documented by: Methocarbamol (Methocarbamol 500 Mg Tablet) 500 mg PO Q6HP PRN PRN Reason: Muscle Spasm Metoprolol Succinate (Metoprolol Succinate 50 Mg Tab.Xl.24h) 50 mg PO QAM [facility] Last Admin: 11/16/21 08:37 Dose: 50 mg Documented by: Omeprazole (Omeprazole 20 Mg Capsule) 40 mg PO BIDAC [facility] Last Admin: 11/16/21 08:39 Dose: Not Given Documented by: Ondansetron HCl (Ondansetron 4 Mg Odt Tablet) 4 mg SL Q4-6HP PRN; Protocol PRN Reason: Nausea And Vomiting Ondansetron HCl (Ondansetron 4 Mg/2 Ml Vial) 4 mg IV Q4-6HP PRN; Protocol PRN Reason: Nausea And Vomiting Polyethylene Glycol (Polyethylene Glycol 3350 17 Gm Packet) 17 gm PO DAILYP PRN PRN Reason: Constipation Potassium Chloride (Potassium Chloride 20 Meq Packet) 40 meq PO DAILYP PRN PRN Reason: K+ < 3.5 Senna/Docusate Sodium (Sennosides/Docusate Sodium 1 Tab Tablet) 1 tab PO HS [facility] Last Admin: 11/15/21 20:56 Dose: 1 tab Documented by: Sodium Chloride (0.9 % Sodium Chloride 10 Ml Syringe) 10 ml IV Q8 [facility] Last Admin: 11/16/21 04:54 Dose: 10 ml Documented by: A/P Narrative A/P Narrative: A: *Multiple pelvic fractures, Including right and left suprapubic rami: -Clinically improved with continued pain management/PT OT, able to bear weight. -Remains high risk subsequent falls and deconditioning. Case management co ordinate SNF placement *Osteoporosis: continue calcium vitamin D, on bisphosphonates as outpatient per patient *HTN: on amlodipine/metoprolol *A. fib: on BB. Not on anticoagulation or antiplatelet due to history of aneurysm *GERD: Plan: -Pain management on as needed Tylenol/Robaxin -PT OT -[facility] BP meds -Discharge planning likely SNF coordination per case management -ppx: SCD refused pharmacological DVT prophylaxis / home ppi DNR Time Spent With Patient Time: Total time spent is greater than 50% in coordination of care (as documented) at patient's floor/unit and/or counseling patient: QUALITY VTE Deep Vein Thrombosis/Pulmonary Embolism Present on Admission: No
[2021-11-16] MEDS: MELATONIN 3 MG TABLET PO PRN (21:32)
[2021-11-16] MEDS: SENNOSIDES/DOCUSATE SODIUM 1 TAB TABLET PO SCH (21:32)
[2021-11-17] MEDS: ACETAMINOPHEN 325 MG TABLET PO PRN ×4 (05:02→20:47)
[2021-11-17] MEDS: 0.9 % SODIUM CHLORIDE 10 ML SYRINGE IV SCH ×3 (05:03→20:48)
[2021-11-17] MEDS: OMEPRAZOLE 20 MG CAPSULE PO SCH ×2 (07:59→16:39)
[2021-11-17] MEDS: MULTIVIT,THER IRON,CA,FA & MIN 1 TABLET PO SCH (08:34)
[2021-11-17] MEDS: DOCUSATE SODIUM 100 MG CAPSULE PO SCH ×2 (08:34→20:47)
[2021-11-17] MEDS: METOPROLOL SUCCINATE 50 MG TAB.XL.24H PO SCH (08:34)
[2021-11-17] MEDS: MELOXICAM 7.5 MG TABLET PO SCH (08:34)
[2021-11-17] MEDS: CALCIUM W/VIT D3 500 MG TABLET PO SCH (08:34)
[2021-11-17] MEDS: LACTOBACILLUS 1 CAPSULE PO SCH (08:34)
--- NOTE | 2021-11-17 09:00 | Internal Med Progress Note ---
SUBJECTIVE Subjective Patient information: Note initiated : 11/17/21 at 9:00 am Service Date, if different from initiated Date: [] Patient: Sherice Danielson 86 y/o F admitted on 11/15/21 for Right groin pain. Chief Complaint: [] Interval history: Ms. Danielson is a 86 year old F who lives with her and was in her usual state of health with well-controlled HTN/osteoporosis/DJD/A. fib and prior history of aneurysmal bleed who presents to the ER after experiencing pain this morning while she was walking and heard a pop around the right hip. She denies abrupt twisting motion or trauma. She immediately felt right-sided hip pain and difficulty weightbearing She helped herself using a walker to the bed. She was discovered by home health nurse in distress and unable to ambulate/weight- bear. She was thereafter sent to the ER for evaluation. Initial work-up was consistent with subacute fracture of the left superior rami/right superior pubic rami/right inferior pubic rami. Significant to presenting history, she fell 4 weeks ago and had a CT done which was unremarkable. During today's evaluation patient remained immobile and sub sequently hospitalist service was consulted for admission for pain management/PT/possible transfer to residential home. 11/16 Ms. Boothe was seen in room this morning. In good spirits. No overnight event, significant pain. Was able to weight bear weight and use the bathroom. Restarting home medications. No fever chills. Continue therapies as tolerated. On Robaxin/Tylenol for pain management. Likely discharge to SNF, case management coordinating 11/17 No acute events overnight. Attempting to work with physical therapy given pelvic pain. Any pain management. Review of Systems: denies headache/fever/chills/nausea/vomiting/chest or abdominal pain/cough/dyspnea/diarrhea. Otherwise see above. Constitutional Vitals: Vital Signs Temp Pulse Resp BP Pulse Ox 97.1 F 99 H 16 126/87 96 11/17/21 07:41 11/17/21 07:41 11/17/21 07:41 11/17/21 07:41 11/17/21 07:41 Period Temp Pulse Resp BP Sys/Booth Pulse Ox Last 24 Hr 97.1 F-98.0 F 99-123 16-20 88-132/62-93 90-96 Intake and Output 11/16/21 11/17/21 11/17/21 21:59 05:59 13:59 Intake Total 200 200 Output Total 150 Balance 200 50 Weight 44.77 kg Intake & Output: Intake & Output 11/16/21 11/17/21 11/17/21 21:59 05:59 13:59 Intake Total 200 200 Output Total 150 Balance 200 50 Weight 44.77 kg Intake: Oral 200 200 Output: Void Amount 150 Other: Urine Appearance Clear Clear Urine Color Pale Pale Stool Size Small Stool Color Brown Stool Consistency Formed # Voids 1 1 # Bowel Movements 1 0 Exam: General: Alert, Awake, No acute Distress Eyes/N/T: EOMI, Head/Neck: neck supple, CV: RRR, No murmurs, Pulm: Clear b/l, no wheezing/rhonchi/rales Abd: soft, nontender, +BS x4 Ext: no clubbing/cyanosis/edema Neuro: Alert, no focal deficits, moves all extremities, Skin: warm/dry OBJ DATA Labs CBC & Chem 7: 11/16/21 05:22 11/16/21 05:22 Labs: Abnormal Lab Results 11/16/21 11/16/21 05:22 05:22 RDW 14.9 H MPV 11.1 H Chloride 95 L BUN 25 H Total Bilirubin 1.1 H GGT 135 H Alkaline Phosphatase 222 H Lactate Dehydrogenase 258 H Meds: Medications Acetaminophen (Acetaminophen 325 Mg Tablet) 650 mg PO Q4-6HP PRN; Protocol PRN Reason: Per Pain Protocol/Fever > 101 Last Admin: 11/17/21 05:02 Dose: 650 mg Documented by: Bisacodyl (Bisacodyl 10 Mg Supp.Rect) 10 mg AL Q2-3DAYS PRN PRN Reason: Constipation Calcium/Vitamin D (Calcium W/Vit D3 500 Mg Tablet) 500 mg PO DAILY [facility] Last Admin: 11/17/21 08:34 Dose: 500 mg Documented by: Docusate Sodium (Docusate Sodium 100 Mg Capsule) 100 mg PO BID [facility] Last Admin: 11/17/21 08:34 Dose: 100 mg Documented by: Acetaminophen (Ofirmev) 650 mg in 65 mls @ 130 mls/hr IV Q6HP PRN; Protocol PRN Reason: Per Pain Protocol/Fever > 101 Magnesium Sulfate (Magnesium Sulfate) 2 gm in 50 mls @ 50 mls/hr IV UD PRN PRN Reason: MG = or < 1.7 Iron Carb/Multivit/Card Assembler/Folic Acid (Multivit,Ther Iron,Ca,Fa & Min 1 Tablet) 1 tab PO DAILY [facility] Last Admin: 11/17/21 08:34 Dose: 1 tab Documented by: Lactobacillus Rhamnosus (Lactobacillus 1 Capsule) 1 cap PO DAILY [facility] Last Admin: 11/17/21 08:34 Dose: 1 cap Documented by: Melatonin (Melatonin 3 Mg Tablet) 3 mg PO HSP PRN PRN Reason: Insomnia Last Admin: 11/16/21 21:32 Dose: 3 mg Documented by: Meloxicam (Meloxicam 7.5 Mg Tablet) 7.5 mg PO DAILY [facility]; Protocol Last Admin: 11/17/21 08:34 Dose: 7.5 mg Documented by: Methocarbamol (Methocarbamol 500 Mg Tablet) 500 mg PO Q6HP PRN PRN Reason: Muscle Spasm Last Admin: 11/16/21 21:32 Dose: 500 mg Documented by: Metoprolol Succinate (Metoprolol Succinate 50 Mg Tab.Xl.24h) 50 mg PO QAM [facility] Last Admin: 11/17/21 08:34 Dose: 50 mg Documented by: Omeprazole (Omeprazole 20 Mg Capsule) 40 mg PO BIDAC [facility] Last Admin: 11/17/21 07:59 Dose: 40 mg Documented by: Ondansetron HCl (Ondansetron 4 Mg Odt Tablet) 4 mg SL Q4-6HP PRN; Protocol PRN Reason: Nausea And Vomiting Ondansetron HCl (Ondansetron 4 Mg/2 Ml Vial) 4 mg IV Q4-6HP PRN; Protocol PRN Reason: Nausea And Vomiting Polyethylene Glycol (Polyethylene Glycol 3350 17 Gm Packet) 17 gm PO DAILYP PRN PRN Reason: Constipation Last Admin: 11/16/21 19:00 Dose: 17 gm Documented by: Potassium Chloride (Potassium Chloride 20 Meq Packet) 40 meq PO DAILYP PRN PRN Reason: K+ < 3.5 Senna/Docusate Sodium (Sennosides/Docusate Sodium 1 Tab Tablet) 1 tab PO HS [facility] Last Admin: 11/16/21 21:32 Dose: 1 tab Documented by: Sodium Chloride (0.9 % Sodium Chloride 10 Ml Syringe) 10 ml IV Q8 [facility] Last Admin: 11/17/21 05:03 Dose: Not Given Documented by: A/P Narrative A/P Narrative: A: *Multiple pelvic fractures, Including right and left suprapubic rami: -Clinically improved with continued pain management/PT OT, able to bear weight. -Remains high risk subsequent falls and deconditioning. Case management coordinate SNF placement *Osteoporosis: continue calcium vitamin D, on bisphosphonates as outpatient per patient *HTN: on amlodipine/metoprolol *A. fib: on BB. Not on anticoagulation or antiplatelet due to history of aneurysm *GERD: Plan: -Pain management on as needed Tylenol/Robaxin -PT OT -[facility] BP meds -Discharge planning likely SNF coordination per case management -ppx: SCD refused pharmacological DVT prophylaxis / home ppi DNR Time Spent With Patient Time: Total time spent is greater than 50% in coordination of care (as documented) at patient's floor/unit and/or counseling patient: QUALITY VTE Deep Vein Thrombosis/Pulmonary Embolism Present on Admission: No
--- NOTE | 2021-11-17 10:13 | XRay Report ---
HISTORY: Cardiomegaly, evaluate for interval change FINDINGS: Heart is moderately enlarged and there is a dual-chamber pacemaker. Diffuse increased interstitial lung markings are developing throughout both lung jerez. There is pleural thickening in the minor fissure. No pleural effusion is seen. There is no lobar consolidation. Kyphoplasty has been performed in one of the lower thoracic vertebra. IMPRESSION: Moderate cardiomegaly which has become worse. Patient also appears to be developing pulmonary vascular congestion Interpreted and Authenticated by: Alpesh Vásquez 11/17/21
--- NOTE | 2021-11-17 16:47 | Discharge Summary ---
Discharge Provider Provider Patient information: Note initiated : 11/17/21 at 4:46 pm Service Date, if different from initiated Date: [] Patient: Sherice Danielson 86 y/o F admitted on 11/15/21 for Right groin pain. Chief Complaint: [] Date of admission: 11/15/21 18:05 Discharge date: 11/19/21 Primary care physician: Paola Lindo Consults: 11/15/21 Consult to Physician [CONS] Stat Comment: Consulting Provider: Doc Naylor Reason For Exam: Physician to Consult Discharge Meds Discharge Medications Home Medications metoprolol succinate 50 mg tablet,extended release 24 hr 50 mg PO QAM 12/29/20 [History Confirmed 11/15/21 Last Taken 11/15/21 08:00] Adult Probiotic 1 cap PO DAILY 07/29/21 [History Confirmed 11/15/21 Last Taken 11/15/21 08:00] Adults Multivitamin 1 tab PO DAILY 07/29/21 [History Confirmed 11/15/21 Last Taken 11/15/21 08:00] Calcium Citrate With D 63 mg PO DAILY 07/29/21 [History Confirmed 11/15/21 Last Taken 11/15/21 08:00] meloxicam 7.5 mg tablet 7.5 mg PO DAILY #60 tab 08/03/21 [Rx Confirmed 11/15/21 Last Taken 11/15/21 08:00] acetaminophen 500 mg tablet 1,000 mg PO Q8HP PRN 11/15/21 [History Confirmed 11/15/21 Last Taken 11/15/21 14:00] omeprazole 20 mg capsule,delayed release 40 mg PO BID 11/15/21 [History Confirmed 11/15/21 Last Taken 11/15/21 08:00] COURSE Hospital Course Hospital course: Interval history: Ms. Danielson is a 86 year old F who lives with her and was in her usual state of health with well-controlled HTN/osteoporosis/DJD/A. fib and prior history of aneurysmal bleed who presents to the ER after experiencing pain this morning while she was walking and heard a pop around the right hip. She denies abrupt twisting motion or trauma. She immediately felt right-sided hip pain and difficulty weightbearing She helped herself using a walker to the bed. She was discovered by home health nurse in distress and unable to ambulate/weight-bear. She was thereafter sent to the ER for evaluation. Initial work-up was consistent with subacute fracture of the left superior rami/right superior pubic rami/right inferior pubic rami. Significant to presenting history, she fell 4 weeks ago and had a CT done which was unremarkable. During today's evaluation patient remained immobile and subsequently hospitalist service was consulted for admission for pain manag ement/PT/possible transfer to [facility]. 11/16 Ms. Boothe was seen in room this morning. In good spirits. No overnight event, significant pain. Was able to weight bear weight and use the bathroom. Restarting home medications. No fever chills. Continue therapies as tolerated. On Robaxin/Tylenol for pain management. Likely discharge to SNF, case management coordinating 11/17 No acute events overnight. Attempting to work with physical therapy given pelvic pain. Any pain management. 11/18 Patient seems to be resting comfortably in bed. No overnight event or new complaints. 11/19 No overnight event or new complaints. Awaiting placement. A: *Multiple pelvic fractures, Including right and left suprapubic rami: -Clinically improved with continued pain management/PT OT, able to bear weight. -Remains high risk subsequent falls and deconditioning. Case management coordinate SNF placement *Osteoporosis: continue calcium vitamin D, on bisphosphonates as outpatient per patient *HTN: on amlodipine/metoprolol *A. fib: on BB. Not on anticoagulation or antiplatelet due to history of aneurysm *GERD: Plan: -Pain management on as needed Tylenol/Robaxin -PT OT -[facility] home BP meds -Discharge planning likely SNF coordination per case management Discharge diagnosis: Multiple pelvic fractures generalized weakness and falling Secondary discharge diagnosis: A. fib hypertension GERD osteoporosis Time Spent with Patient Time attestation: Total time spent providing and/or coordinating discharge services: Time spent: Greater than 30 minutes EXAM Constitutional Vitals: Temp Pulse Resp BP Pulse Ox 97.6 F 96 H 16 125/88 97 11/17/21 15:45 11/17/21 15:45 11/17/21 15:45 11/17/21 15:45 11/17/21 15:45 Discharge Plan Patient/Caregiver Discharge Instructions Activity: increase activity as tolerated Diet: Regular Diet Prescriptions: Continued metoprolol succinate 50 mg tablet extended release 24 hr 50 mg PO QAM 0RF Adult Probiotic 1 cap PO DAILY 0RF Adults Multivitamin 1 tab PO DAILY 0RF Calcium Citrate With D 63 mg PO DAILY 0RF meloxicam 7.5 mg Tablet 7.5 mg PO DAILY Qty: 60 3RF acetaminophen 500 mg tablet 1,000 mg PO Q8HP PRN (Reason: pain) 0RF omeprazole 20 mg capsule,delayed release(DR/EC) 40 mg PO BID 0RF Follow Up Plan Follow up with: Paola Lindo MD [Primary Care Provider] - Patient Disposition: Xfer SNF Prognosis: Fair Rehab Potential: Fair I certify that the patient requires SNF services: Yes Overall status at discharge: patient is progressing back to baseline Discharge Orders: Discharge Order (Routine); Ordered 11/19/21 Ordered By: Fredo Singh [facility] Deep Vein Thrombosis/Pulmonary Embolism Present on Admission: No
[2021-11-17] MEDS: SENNOSIDES/DOCUSATE SODIUM 1 TAB TABLET PO SCH (20:47)
[2021-11-17] MEDS: METHOCARBAMOL 500 MG TABLET PO PRN (20:48)
[2021-11-18] MEDS: ACETAMINOPHEN 325 MG TABLET PO PRN ×2 (02:46→16:39)
[2021-11-18] MEDS: 0.9 % SODIUM CHLORIDE 10 ML SYRINGE IV SCH ×3 (05:48→20:47)
[2021-11-18] MEDS: OMEPRAZOLE 20 MG CAPSULE PO SCH ×2 (07:46→16:39)
[2021-11-18] MEDS: METOPROLOL SUCCINATE 50 MG TAB.XL.24H PO SCH (08:20)
[2021-11-18] MEDS: MELOXICAM 7.5 MG TABLET PO SCH (08:20)
[2021-11-18] MEDS: DOCUSATE SODIUM 100 MG CAPSULE PO SCH ×2 (08:20→20:31)
[2021-11-18] MEDS: MULTIVIT,THER IRON,CA,FA & MIN 1 TABLET PO SCH (08:20)
[2021-11-18] MEDS: CALCIUM W/VIT D3 500 MG TABLET PO SCH (08:20)
[2021-11-18] MEDS: LACTOBACILLUS 1 CAPSULE PO SCH (08:20)
--- NOTE | 2021-11-18 08:46 | Internal Med Progress Note ---
SUBJECTIVE Subjective Patient information: Note initiated : 11/18/21 at 8:45 am Service Date, if different from initiated Date: [] Patient: Sherice Danielson 86 y/o F admitted on 11/15/21 for Right groin pain. Chief Complaint: [] Interval history: Ms. Danielson is a 86 year old F who lives with her and was in her usual state of health with well-controlled HTN/osteoporosis/DJD/A. fib and prior history of aneurysmal bleed who presents to the ER after experiencing pain this morning while she was walking and heard a pop around the right hip. She denies abrupt twisting motion or trauma. She immediately felt right-sided hip pain and difficulty weightbearing She helped herself using a walker to the bed. She was discovered by home health nurse in distress and unable to ambulate/weight- bear. She was thereafter sent to the ER for evaluation. Initial work-up was consistent with subacute fracture of the left superior rami/right superior pubic rami/right inferior pubic rami. Significant to presenting history, she fell 4 weeks ago and had a CT done which was unremarkable. During today's evaluation patient remained immobile and sub sequently hospitalist service was consulted for admission for pain management/PT/possible transfer to alf home. 11/16 Ms. Boothe was seen in room this morning. In good spirits. No overnight event, significant pain. Was able to weight bear weight and use the bathroom. Restarting home medications. No fever chills. Continue therapies as tolerated. On Robaxin/Tylenol for pain management. Likely discharge to SNF, case management coordinating 11/17 No acute events overnight. Attempting to work with physical therapy given pelvic pain. Any pain management. 11/18 Patient seems to be resting comfortably in bed. No overnight event or new complaints. Review of Systems: denies headache/fever/chills/nausea/vomiting/chest or abdominal pain/cough/dyspnea/diarrhea. Otherwise see above. Constitutional Vitals: Vital Signs Temp Pulse Resp BP Pulse Ox 97.4 F 111 H 18 149/88 94 11/18/21 06:44 11/18/21 06:44 11/18/21 06:44 11/18/21 06:44 11/18/21 06:44 Period Temp Pulse Resp BP Sys/Booth Pulse Ox Last 24 Hr 97.3 F-98.1 F 96-115 16-20 104-151/70-93 91-97 Intake and Output 11/17/21 11/18/21 11/18/21 21:59 05:59 13:59 Intake Total 800 200 240 Output Total 300 275 250 Balance 500 -75 -10 Weight 44.18 kg Intake & Output: Intake & Output 11/17/21 11/18/21 11/18/21 21:59 05:59 13:59 Intake Total 800 200 240 Output Total 300 275 250 Balance 500 -75 -10 Weight 44.18 kg Intake: Oral 800 200 240 Output: Void Amount 300 275 250 Other: Meal Dinner Breakfast Percent of Meal Consumed 50% 100% Feeding Ability Independent Independent Urine Appearance Clear Clear Urine Color Straw Pale Pale Urine Odor Normal Normal Stool Size Moderate Small Stool Color Brown Brown Stool Consistency Ranjana Ranjana # Voids 1 # Bowel Movements 0 1 Exam: General: Alert, Awake, No acute Distress Eyes/N/T: EOMI, Head/Neck: neck supple, CV: RRR, No murmurs, Pulm: Clear b/l, no wheezing/rhonchi/rales Abd: soft, nontender, +BS x4 Ext: no clubbing/cyanosis/edema Neuro: Alert, no focal deficits, moves all extremities, Skin: warm/dry OBJ DATA Labs CBC & Chem 7: 11/16/21 05:22 11/16/21 05:22 Labs: Abnormal Lab Results 11/16/21 11/16/21 05:22 05:22 RDW 14.9 H MPV 11.1 H Chloride 95 L BUN 25 H Total Bilirubin 1.1 H GGT 135 H Alkaline Phosphatase 222 H Lactate Dehydrogenase 258 H Meds: Medications Acetaminophen (Acetaminophen 325 Mg Tablet) 650 mg PO Q4-6HP PRN; Protocol PRN Reason: Per Pain Protocol/Fever > 101 Last Admin: 11/18/21 02:46 Dose: 650 mg Documented by: Bisacodyl (Bisacodyl 10 Mg Supp.Rect) 10 mg MT Q2-3DAYS PRN PRN Reason: Constipation Calcium/Vitamin D (Calcium W/Vit D3 500 Mg Tablet) 500 mg PO DAILY [facility] Last Admin: 11/18/21 08:20 Dose: 500 mg Documented by: Docusate Sodium (Docusate Sodium 100 Mg Capsule) 100 mg PO BID [facility] Last Admin: 11/18/21 08:20 Dose: 100 mg Documented by: Acetaminophen (Ofirmev) 650 mg in 65 mls @ 130 mls/hr IV Q6HP PRN; Protocol PRN Reason: Per Pain Protocol/Fever > 101 Magnesium Sulfate (Magnesium Sulfate) 2 gm in 50 mls @ 50 mls/hr IV UD PRN PRN Reason: MG = or < 1.7 Iron Carb/Multivit/Rush/Folic Acid (Multivit,Ther Iron,Ca,Fa & Min 1 Tablet) 1 tab PO DAILY [facility] Last Admin: 11/18/21 08:20 Dose: 1 tab Documented by: Lactobacillus Rhamnosus (Lactobacillus 1 Capsule) 1 cap PO DAILY [facility] Last Admin: 11/18/21 08:20 Dose: 1 cap Documented by: Melatonin (Melatonin 3 Mg Tablet) 3 mg PO HSP PRN PRN Reason: Insomnia Last Admin: 11/16/21 21:32 Dose: 3 mg Documented by: Meloxicam (Meloxicam 7.5 Mg Tablet) 7.5 mg PO DAILY [facility]; Protocol Last Admin: 11/18/21 08:20 Dose: 7.5 mg Documented by: Methocarbamol (Methocarbamol 500 Mg Tablet) 500 mg PO Q6HP PRN PRN Reason: Muscle Spasm Last Admin: 11/17/21 20:48 Dose: 500 mg Documented by: Metoprolol Succinate (Metoprolol Succinate 50 Mg Tab.Xl.24h) 50 mg PO QAM [facility] Last Admin: 11/18/21 08:20 Dose: 50 mg Documented by: Omeprazole (Omeprazole 20 Mg Capsule) 40 mg PO BIDAC [facility] Last Admin: 11/18/21 07:46 Dose: 40 mg Documented by: Ondansetron HCl (Ondansetron 4 Mg Odt Tablet) 4 mg SL Q4-6HP PRN; Protocol PRN Reason: Nausea And Vomiting Ondansetron HCl (Ondansetron 4 Mg/2 Ml Vial) 4 mg IV Q4-6HP PRN; Protocol PRN Reason: Nausea And Vomiting Polyethylene Glycol (Polyethylene Glycol 3350 17 Gm Packet) 17 gm PO DAILYP PRN PRN Reason: Constipation Last Admin: 11/16/21 19:00 Dose: 17 gm Documented by: Potassium Chloride (Potassium Chloride 20 Meq Packet) 40 meq PO DAILYP PRN PRN Reason: K+ < 3.5 Senna/Docusate Sodium (Sennosides/Docusate Sodium 1 Tab Tablet) 1 tab PO HS [facility] Last Admin: 11/17/21 20:47 Dose: 1 tab Documented by: Sodium Chloride (0.9 % Sodium Chloride 10 Ml Syringe) 10 ml IV Q8 [facility] Last Admin: 11/18/21 05:48 Dose: Not Given Documented by: A/P Narrative A/P Narrative: A: *Multiple pelvic fractures, Including right and left suprapubic rami: -Clinically improved with continued pain management/PT OT, able to bear weight. -Remains high risk subsequent falls and deconditioning. Case management coordinate SNF placement *Osteoporosis: continue calcium vitamin D, on bisphosphonates as outpatient per patient *HTN: on amlodipine/metoprolol *A. fib: on BB. Not on anticoagulation or antiplatelet due to history of aneurysm *GERD: Plan: -Pain management on as needed Tylenol/Robaxin -PT OT -[facility] BP meds -Discharge planning likely SNF coordination per case management -ppx: [facility] refused pharmacological DVT prophylaxis / home ppi DNR Time Spent With Patient Time: Total time spent is greater than 50% in coordination of care (as documented) at patient's floor/unit and/or counseling patient: [facility] Deep Vein Thrombosis/Pulmonary Embolism Present on Admission: No
[2021-11-18] MEDS: SENNOSIDES/DOCUSATE SODIUM 1 TAB TABLET PO SCH (20:31)
[2021-11-19] MEDS: ACETAMINOPHEN 325 MG TABLET PO PRN (02:48)
[2021-11-19] MEDS: 0.9 % SODIUM CHLORIDE 10 ML SYRINGE IV SCH ×2 (05:51→14:54)
[2021-11-19] MEDS: OMEPRAZOLE 20 MG CAPSULE PO SCH (07:26)
[2021-11-19] MEDS: LACTOBACILLUS 1 CAPSULE PO SCH (08:18)
[2021-11-19] MEDS: DOCUSATE SODIUM 100 MG CAPSULE PO SCH (08:18)
[2021-11-19] MEDS: METOPROLOL SUCCINATE 50 MG TAB.XL.24H PO SCH (08:18)
[2021-11-19] MEDS: CALCIUM W/VIT D3 500 MG TABLET PO SCH (08:18)
[2021-11-19] MEDS: MELOXICAM 7.5 MG TABLET PO SCH (08:19)
[2021-11-19] MEDS: MULTIVIT,THER IRON,CA,FA & MIN 1 TABLET PO SCH (08:19)
--- NOTE | 2021-11-19 10:55 | Internal Med Progress Note ---
SUBJECTIVE Subjective Patient information: Note initiated : 11/19/21 at 10:54 am Service Date, if different from initiated Date: [] Patient: Sherice Danielson 86 y/o F admitted on 11/15/21 for Right groin pain. Chief Complaint: [] Interval history: Ms. Danielson is a 86 year old F who lives with her and was in her usual state of health with well-controlled HTN/osteoporosis/DJD/A. fib and prior history of aneurysmal bleed who presents to the ER after experiencing pain this morning while she was walking and heard a pop around the right hip. She denies abrupt twisting motion or trauma. She immediately felt right-sided hip pain and difficulty weightbearing She helped herself using a walker to the bed. She was discovered by home health nurse in distress and unable to ambulate/weight- bear. She was thereafter sent to the ER for evaluation. Initial work-up was consistent with subacute fracture of the left superior rami/right superior pubic rami/right inferior pubic rami. Significant to presenting history, she fell 4 weeks ago and had a CT done which was unremarkable. During today's evaluation patient remained immobile and graff bsequently hospitalist service was consulted for admission for pain management/PT/possible transfer to long term home. 11/16 Ms. Boothe was seen in room this morning. In good spirits. No overnight event, significant pain. Was able to weight bear weight and use the bathroom. Restarting home medications. No fever chills. Continue therapies as tolerated. On Robaxin/Tylenol for pain management. Likely discharge to SNF, case management coordinating 11/17 No acute events overnight. Attempting to work with physical therapy given pelvic pain. Any pain management. 11/18 Patient seems to be resting comfortably in bed. No overnight event or new complaints. 11/19 No overnight event or new complaints. Awaiting placement. Review of Systems: denies headache/fever/chills/nausea/vomiting/chest or abdominal pain/cough/dyspnea/diarrhea. Otherwise see above. Constitutional Vitals: Vital Signs Temp Pulse Resp BP Pulse Ox 98.5 F 94 H 18 122/82 92 11/19/21 07:00 11/19/21 07:00 11/19/21 07:00 11/19/21 07:00 11/19/21 07:00 Period Temp Pulse Resp BP Sys/Booth Pulse Ox Last 24 Hr 96.9 F-98.5 F 94-105 16-20 105-146/73-90 90-95 Intake and Output 11/18/21 11/19/21 11/19/21 21:59 05:59 13:59 Intake Total 700 Output Total 375 550 150 Balance -375 150 -150 Weight 44.815 kg Intake & Output: Intake & Output 11/18/21 11/19/21 11/19/21 21:59 05:59 13:59 Intake Total 700 Output Total 375 550 150 Balance -375 150 -150 Weight 44.815 kg Intake: Oral 700 Output: Void Amount 375 550 150 Other: Meal Breakfast Percent of Meal Consumed 100% Feeding Ability Independent Urine Appearance Clear Clear Clear Urine Color Pale Pale Straw Urine Odor Normal Normal Normal Stool Size Moderate Smear Stool Color Brown Brown Stool Consistency Dry and Hard Soft Formed Formed # Bowel Movements 1 Exam: General: Alert, Awake, No acute Distress Eyes/N/T: EOMI, Head/Neck: neck supple, CV: RRR, No murmurs, Pulm: Clear b/l, no wheezing/rhonchi/rales Abd: soft, nontender, +BS x4 Ext: no clubbing/cyanosis/edema Neuro: Alert, no focal deficits, moves all extremities, Skin: warm/dry OBJ DATA Labs CBC & Chem 7: 11/16/21 05:22 11/16/21 05:22 Meds: Medications Acetaminophen (Acetaminophen 325 Mg Tablet) 650 mg PO Q4-6HP PRN; Protocol PRN Reason: Per Pain Protocol/Fever > 101 Last Admin: 11/19/21 02:48 Dose: 650 mg Documented by: Bisacodyl (Bisacodyl 10 Mg Supp.Rect) 10 mg OR Q2-3DAYS PRN PRN Reason: Constipation Calcium/Vitamin D (Calcium W/Vit D3 500 Mg Tablet) 500 mg PO DAILY [facility] Last Admin: 11/19/21 08:18 Dose: 500 mg Documented by: Docusate Sodium (Docusate Sodium 100 Mg Capsule) 100 mg PO BID [facility] Last Admin: 11/19/21 08:18 Dose: 100 mg Documented by: Acetaminophen (Ofirmev) 650 mg in 65 mls @ 130 mls/hr IV Q6HP PRN; Protocol PRN Reason: Per Pain Protocol/Fever > 101 Magnesium Sulfate (Magnesium Sulfate) 2 gm in 50 mls @ 50 mls/hr IV UD PRN PRN Reason: MG = or < 1.7 Iron Carb/Multivit/Mcpherson/Folic Acid (Multivit,Ther Iron,Ca,Fa & Min 1 Tablet) 1 tab PO DAILY [facility] Last Admin: 11/19/21 08:19 Dose: 1 tab Documented by: Lactobacillus Rhamnosus (Lactobacillus 1 Capsule) 1 cap PO DAILY [facility] Last Admin: 11/19/21 08:18 Dose: 1 cap Documented by: Melatonin (Melatonin 3 Mg Tablet) 3 mg PO HSP PRN PRN Reason: Insomnia Last Admin: 11/16/21 21:32 Dose: 3 mg Documented by: Meloxicam (Meloxicam 7.5 Mg Tablet) 7.5 mg PO DAILY [facility]; Protocol Last Admin: 11/19/21 08:19 Dose: 7.5 mg Documented by: Methocarbamol (Methocarbamol 500 Mg Tablet) 500 mg PO Q6HP PRN PRN Reason: Muscle Spasm Last Admin: 11/17/21 20:48 Dose: 500 mg Documented by: Metoprolol Succinate (Metoprolol Succinate 50 Mg Tab.Xl.24h) 50 mg PO QAM [facility] Last Admin: 11/19/21 08:18 Dose: 50 mg Documented by: Omeprazole (Omeprazole 20 Mg Capsule) 40 mg PO BIDAC [facility] Last Admin: 11/19/21 07:26 Dose: 40 mg Documented by: Ondansetron HCl (Ondansetron 4 Mg Odt Tablet) 4 mg SL Q4-6HP PRN; Protocol PRN Reason: Nausea And Vomiting Ondansetron HCl (Ondansetron 4 Mg/2 Ml Vial) 4 mg IV Q4-6HP PRN; Protocol PRN Reason: Nausea And Vomiting Polyethylene Glycol (Polyethylene Glycol 3350 17 Gm Packet) 17 gm PO DAILYP PRN PRN Reason: Constipation Last Admin: 11/16/21 19:00 Dose: 17 gm Documented by: Potassium Chloride (Potassium Chloride 20 Meq Packet) 40 meq PO DAILYP PRN PRN Reason: K+ < 3.5 Senna/Docusate Sodium (Sennosides/Docusate Sodium 1 Tab Tablet) 1 tab PO HS [facility] Last Admin: 11/18/21 20:31 Dose: 1 tab Documented by: Sodium Chloride (0.9 % Sodium Chloride 10 Ml Syringe) 10 ml IV Q8 [facility] Last Admin: 11/19/21 05:51 Dose: Not Given Documented by: A/P Narrative A/P Narrative: A: *Multiple pelvic fractures, Including right and left suprapubic rami: -Clinically improved with continued pain management/PT OT, able to bear w eight. -Remains high risk subsequent falls and deconditioning. Case management coordinate SNF placement *Osteoporosis: continue calcium vitamin D, on bisphosphonates as outpatient per patient *HTN: on amlodipine/metoprolol *A. fib: on BB. Not on anticoagulation or antiplatelet due to history of aneurysm *GERD: Plan: -Pain management on as needed Tylenol/Robaxin -PT OT -[facility] BP meds -Discharge planning likely SNF coordination per case management -ppx: [facility] refused pharmacological DVT prophylaxis / home ppi DNR Time Spent With Patient Time: Total time spent is greater than 50% in coordination of care (as documented) at patient's floor/unit and/or counseling patient: [facility] Deep Vein Thrombosis/Pulmonary Embolism Present on Admission: No
== END 2021-11-19 16:00 | DRG 536 ==
LOC: ED 15:14 → MEDSUR 18:05
PROVIDERS: ADMIT Internal Medicine; ATTEND Internal Medicine